=== PATIENT | male | born 1950 | race Caucasian/White ===

== ENCOUNTER 2016-12-16 11:21 | Emergency (ER) | payer BC ==
[2016-12-16 11:36] VITALS: BP 146/62
[2016-12-16] MEDS ORDERED: Ketorolac INJ* 30 MG/ML 1 ML VIAL IM ONE (11:48)
--- NOTE | 2016-12-16 11:48 | UC ---
Back Pain HPI - HPI Summary HPI Summary: 66 yo male with the onset on LBP 4 days ago Gradually got worse and worse right posterior leg pain to below knee no bowel or bladder dysfunction has had sciatica before but never this back - History of Current Complaint Chief Complaint: UCBackPain Stated Complaint: BACK PAIN Time Seen by Provider: 12/16/16 11:30 Hx Obtained From: Patient Onset/Duration: Sudden Onset, Lasting Days - 4 Timing: Constant Severity Initially: Mild Severity Currently: Severe Pain Intensity: 8 Pain Scale Used: 0-10 Numeric Back Pain: Is Diffuse - lower back, Radiates To - posterior right leg to just below knee Character: Aching, Throbbing Aggravating Factor(s): Movement, Bending, Cough Alleviating Factor(s): Rest Associated Signs And Symptoms: Positive: Negative - Allergies/Home Medications Allergies/Adverse Reactions: Allergies Allergy/AdvReac Type Severity Reaction Status Date / Time No Known Allergies Allergy Verified 12/16/16 11:34 Home Medications: Home Medications Atorvastatin* [Lipitor 20 MG*] 20 mg PO DAILY 12/16/16 [History Confirmed ] Enalapril TAB* [Vasotec TAB*] 10 mg PO DAILY 12/16/16 [History Confirmed ] PMH/Surg Hx/FS Hx/Imm Hx Previously Healthy: Yes Cardiovascular History: Hypertension - Surgical History Surgical History: None - Family History Known Family History: Positive: Cardiac Disease, Hypertension, Diabetes - Social History Alcohol Use: Occasionally Substance Use Type: None Smoking Status (MU): Never Smoked Tobacco Review of Systems Constitutional: Negative Skin: Negative Eyes: Negative ENT: Negative Respiratory: Negative Cardiovascular: Negative Gastrointestinal: Negative Genitourinary: Negative Motor: Negative Neurovascular: Negative Musculoskeletal: Arthralgia, Myalgia Neurological: Negative Psychological: Negative Is Patient Immunocompromised?: No All Other Systems Reviewed And Are Negative: Yes Physical Exam Triage Information Reviewed: Yes Appearance: Well-Appearing, No Pain Distress, Well-Nourished Vital Signs: Initial Vital Signs Temp 99.7 F 12/16/16 11:32 Pulse 99 12/16/16 11:32 Resp 20 12/16/16 11:32 BP 146/62 12/16/16 11:32 Pulse Ox 99 12/16/16 11:32 Vital Signs Reviewed: Yes Eyes: Positive: Conjunctiva Clear ENT: Positive: Hearing grossly normal. Negative: Nasal congestion, Nasal drainage, Tonsillar exudate, Trismus, Muffled/hoarse voice Neck: Positive: Supple, Nontender, No Lymphadenopathy Respiratory: Positive: Lungs clear, Normal breath sounds, No respiratory distress, No accessory muscle use Cardiovascular: Positive: RRR, No Murmur Abdomen Description: Positive: Nontender, No Organomegaly, Soft. Negative: Bruit, CVA Tenderness (R), CVA Tenderness (L) Musculoskeletal: Positive: No Edema Neurological: Positive: Alert Psychological Exam: Normal Skin Exam: Normal Diagnostics - Radiology No standard instances Xray Interpretation: No Acute Changes Radiology Interpretation Completed By: ED Physician Back Pain Course/Dx - Differential Dx/Diagnosis Provider Diagnoses: acute right sciatica Discharge - Discharge Plan Condition: Stable Disposition: HOME Prescriptions: Cyclobenzaprine TAB* [Flexeril TAB*] 5 mg PO TID PRN #15 tab PRN Reason: Spasms HYDROcodone/ACETAMIN 5-325 MG* [[place] 5-325 TAB*] 1 tab PO Q4H PRN #15 tab MDD 4 PRN Reason: Pain Naproxen Sodium [Naproxen Sodium 500 MG TAB] 500 mg PO BID PRN #30 tab PRN Reason: Pain Patient Education Materials: Sciatica (ED) Referrals: Nolberto Pabon MD [Primary Care Provider] - 5 Days Images Front/Back of Body, Lg ([place]): 1 - pain here 2 - radiates here, + SLR to 45 %
--- NOTE | 2016-12-16 13:21 | RAD ---
INDICATION: Low back pain, right sciatica. COMPARISON: There are no prior studies available for comparison. TECHNIQUE: 5 views of the lumbar spine were obtained including lateral, oblique, AP and a coned-down lateral view of the lumbar sacral junction. FINDINGS: There is mild retrolisthesis of L3 relative to L4 of approximately 4 mm. The vertebra are otherwise in normal alignment. No fracture is seen. There is mild diffuse degenerative disc disease. IMPRESSION: 1. 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 2. MILD DIFFUSE DEGENERATIVE DISC DISEASE.
== END 2016-12-16 13:34 | disposition home or self-care (01) ==
LOC: UCEAST 11:21
DX: M54.31 Sciatica, right side (principal); I10 Essential (primary) hypertension
CPT/HCPCS: 72110; 96372; 99212; G0463; J1885

== ENCOUNTER 2017-10-03 08:27 | Inpatient (IN) | payer MEDICARE ==
--- NOTE | 2017-09-20 12:25 | HP ---
HISTORY AND PHYSICAL: PROVIDER: Dr. Nichole Lawler * (DICTATED BY MANISH ORO) DATE OF PROCEDURE: 10/03/17 HISTORY OF PRESENT ILLNESS: Mr. Obregon is a 67-year-old gentleman with over a year of increasing severe right knee pain. Pain is 7/10. He is having difficulty ambulating. He has failed antiinflammatories, activity modification , ice, and a home exercise program without relief. He would like to undergo a right total knee arthroplasty on 10/03/17. PAST MEDICAL HISTORY: 1. Hypercholesterolemia. 2. Hypertension. 3. Osteoarthritis. 4. Morbid obesity. 5. Hepatitis C. PAST SURGICAL HISTORY: 1. Cholecystectomy. 2. Knee arthroscopy, right knee. MEDICATIONS: 1. Atorvastatin calcium 20 mg. 2. Enalapril 10 mg. 3. Low dose aspirin 81 mg. ALLERGIES: NOVOCAIN causes tremors. FAMILY HISTORY: Maternal; diabetes, hypertension, cancer. Paternal; heart disease. SOCIAL HISTORY: The patient lives with his , retired from [employer]. Denies any tobacco or recreational drug use. Minimal alcohol use. Normally ambulates independently. Right-hand dominant. REVIEW OF SYSTEMS: General: The patient denies any fevers, chills, or night sweats. No known anesthesia problems. HEENT: Denies any headaches, lightheadedness, or syncopal episodes. Cardiothoracic: Denies any chest pain, heart palpitations or edema. Pulmonary: Denies any shortness of breath with exertion, chronic cough or COPD. GI: Denies any nausea, vomiting, diarrhea, or constipation. : Denies any nocturia, urinary frequency or urgency. MSK: Denies any chronic or intermittent back pain or fracture. Neuro: Denies any paresthesias or numbness. Integument: Denies any abrasions, lesions, rashes, lumps or open sores. PHYSICAL EXAMINATION GENERAL: The patient is alert and oriented x3. Appropriate mood and affect. Appropriately dressed and hygiene. No acute distress. HEENT: Normocephalic, atraumatic. Hearing and vision are grossly intact. PULMONARY: Lungs are clear to auscultation bilaterally with no wheezes, rales or rhonchi. CARDIO: Regular rate and rhythm. Normal S1 and S2. No appreciable S3 or S4. No murmurs, rubs, or gallops. MSK: Inspection of the right lower extremity reveals no erythema or ecchymosis. There is a moderate joint effusion present. Range of motion is 10 degrees to 120 degrees of flexion with knee pain and patellofemoral crepitus. He has positive medial and lateral joint line tenderness to palpation. Negative varus and valgus stress testing, negative anterior and posterior drawer testing. Neurovascularly intact distally with 2+ dorsalis pedis pulse. SKIN: Warm, dry, and intact. IMPRESSION: Severe end-stage right knee osteoarthritis. PLAN/RECOMMENDATIONS: To the OR for a right total knee arthroplasty to be performed on 10/03/17. The risks and benefits of surgery were reviewed with the patient by Dr. Lawler. Informed consent was obtained. The patient will return postoperatively 10 to 14 days postop for suture removal and followup. MANISH ORO [id number]/[facility] #: [id number] FISH
[~2017-10-03 08:27] MED LIST: Acetaminophen TAB* 325 MG PO ONE; Buffered Lidocaine 0.9% SYRIN* 5 ML/SYR SYRINGE INTRADERM ONE; Gabapentin CAP(*) 300 MG PO ONE; celeCOXIB CAP* 200 MG PO ONE
[2017-10-03] MEDS ORDERED: Gabapentin CAP(*) 300 MG ONE (08:40)
[2017-10-03] MEDS ORDERED: celeCOXIB CAP* 100 MG ONE (08:40)
[2017-10-03] MEDS ORDERED: ceFAZolin 1 GM in Dextrose (*) 1 GM/50 ML BAG IVPB ONE (08:41)
[2017-10-03] MEDS ORDERED: ceFAZolin 2 GM PREMIX (*) 2 GM/50 ML BAG IVPB ONE (08:41)
[2017-10-03] MEDS ORDERED: Acetaminophen TAB* 325 MG ONE (08:41)
[2017-10-03] MEDS ORDERED: Tranexamic Acid 1,000 MG/10 ML 1,000 MG in NS 0.9% 100 ML* 100 ML IV ONE (09:00)
[2017-10-03] MEDS ORDERED: Gabapentin CAP(*) 100 MG ONE ×2 (09:29→09:47)
[2017-10-03] MEDS ORDERED: fentaNYL* 50 MCG/ML 2 ML VIAL (100 MCG VIAL) ONE (09:49)
[2017-10-03] MEDS ORDERED: Midazolam* 1 MG/ML 5 ML VIAL (5 MG) ONE (09:49)
[2017-10-03] MEDS ORDERED: Midazolam* 1 MG/ML 2 ML VIAL (2 MG) ONE ×2 (10:43→13:13)
[2017-10-03] MEDS ORDERED: Propofol* 10 MG/ML 20 ML BTL IV PUSH ONE ×3 (10:57→12:45)
[2017-10-03] MEDS ORDERED: Dexamethasone IV* 4 MG/ML 1 ML (4 MG) ONE (10:57)
[2017-10-03] MEDS ORDERED: Famotidine IV* 10 MG/ML 2 ML (20 mg) ONE (10:57)
[2017-10-03] MEDS ORDERED: Scopolamine 1.5 mg* PATCH ONE (11:06)
[2017-10-03] MEDS ORDERED: diPHENhydraMINE IV* 50 MG/ML 1 ml VIAL (BENADRYL) IV PRN ×2 (12:09→13:36)
[2017-10-03] MEDS ORDERED: DiMENhydriNATE IV* 50 MG/ML VIAL IV PUSH PRN (12:09)
[2017-10-03] MEDS ORDERED: Naloxone* 0.4 MG/ML 1 ML VIAL IV PRN (12:09)
[2017-10-03] MEDS ORDERED: Ondansetron INJ* 2 MG/ML VIAL IV PRN ×2 (12:09→13:36)
[2017-10-03] MEDS ORDERED: HYDROcodone/ACETAMIN 5-325 MG* 1 TAB PO PRN ×2 (12:09)
[2017-10-03] MEDS ORDERED: HYDROmorphone INJ* 0.5 MG/0.5 ML SYRINGE IV PRN (12:09)
[2017-10-03] MEDS ORDERED: fentaNYL* 50 MCG/ML 2 ML VIAL (100 MCG VIAL) IV PRN (12:09)
[2017-10-03] MEDS ORDERED: Acetaminophen TAB* 325 MG PO PRN (12:09)
[2017-10-03] MEDS ORDERED: Levalbuterol 0.63MG/3ML NEB* UNIT OF USE INH PRN (12:09)
[2017-10-03] MEDS ORDERED: PROCHLORPERAZINE INJ 5 MG/ML 2 ML VIAL IV PRN (12:09)
[2017-10-03] MEDS ORDERED: Nalbuphine* 10 MG/ML 1 ML VIAL IV PRN (12:09)
[2017-10-03] MEDS ORDERED: Bupivacaine 0.25% SDV PF* 10 ML VIAL INJ ONE (12:28)
[2017-10-03] MEDS ORDERED: Magnesium Hydroxide LIQ* 30 ML UDC PO PRN (13:36)
[2017-10-03] MEDS ORDERED: Morphine INJ* 2 MG/ML 1 ML SYRINGE (TWO MG - NEW SYRINGE VERSION) IV PRN (13:36)
[2017-10-03] MEDS ORDERED: Polyethylene Glycol 3350* 17 GM PACKET PO PRN (13:36)
[2017-10-03] MEDS ORDERED: oxyCODONE/Acetamin 5/325 MG* TAB PO PRN (13:36)
[2017-10-03] MEDS ORDERED: Ondansetron TAB* 4 MG PO PRN (13:36)
[2017-10-03] MEDS ORDERED: Bisacodyl SUPP* 10 MG SUPP PR PRN (13:36)
--- NOTE | 2017-10-03 14:34 | RAD ---
HISTORY: s/p right TKA COMPARISONS: August 23, 2017 VIEWS: 2, Frontal and lateral views of the right knee FINDINGS: BONE DENSITY: Normal. BONES: The patient is status post right knee arthroplasty. There is no hardware failure or osteolysis. JOINTS: The patient is status post right knee arthroplasty. ALIGNMENT: There is no dislocation. SOFT TISSUES: Unremarkable. OTHER FINDINGS: None. IMPRESSION: STATUS POST RIGHT KNEE ARTHROPLASTY
[2017-10-03] MEDS: oxyCODONE/Acetamin 5/325 MG* TAB PO PRN (16:54)
[2017-10-03] MEDS ORDERED: Warfarin TAB(*) 6 MG PO ONE (17:00)
[2017-10-03] MEDS: ceFAZolin 1 GM in Dextrose (*) 1 GM/50 ML BAG IVPB SCH (18:47)
[2017-10-03] MEDS: Docusate CAP* 100 MG PO SCH (20:39)
[2017-10-03] MEDS: Magnesium Hydroxide LIQ* 30 ML UDC PO SCH (20:39)
--- NOTE | 2017-10-03 21:13 | CONS ---
CONSULTATION REPORT: DATE OF CONSULT: 10/03/17 TIME OF CONSULTATION: 2:30 p.m. REQUESTING PHYSICIAN: Nichole Lawler MD PRIMARY CARE PHYSICIAN: Wilfred Banks M.D. CHIEF COMPLAINT: Elective admission for right knee TKA. HISTORY OF PRESENT ILLNESS: This is a 67-year-old man with history of osteoarthritis that has been refractory to medical management who was admitted today for an elective right TKA with Dr. Lawler. He underwent spinal anesthesia. He received Versed, fentanyl and propofol intraoperatively and is seen in the PACU. A medical consult is requested for hypertension management. Mr. Obregon is feeling well at this time. His is at the bedside. He has no complaints. PAST MEDICAL HISTORY: 1. Osteoarthritis. 2. Hypertension. 3. Obesity. 4. Hepatitis A. Please note that prior records report a history of HCV; however, he does not have a reported history of HCV, only hepatitis A. PAST SURGICAL HISTORY: 1. Meniscus repair. 2. Cholecystectomy. HOME MEDICATIONS: 1. Enalapril 10 mg daily. 2. Atorvastatin 20 mg daily. SOCIAL HISTORY: He lives at home with his , Devika. He is retired. He is a never smoker. He uses no illicit drugs and he drinks 3 alcoholic beverages per week. REVIEW OF SYSTEMS: Negative for pain, nausea, chest pain, shortness of breath, headache, fever, or chills. PHYSICAL EXAM: Vital Signs: Temperature 96.8, heart rate 60, respiratory rate 18, pulse ox 98% on 2 liters, blood pressure 127/85. General: Drowsy, obese man, in no distress. He alerts easily to voice and follows all commands and answers my questions appropriately. HEENT: Pupils are equal, round and reactive to light. No nystagmus. Oral mucosa is moist. Neck: No JVP. No cervical adenopathy. Chest: Regular rate and rhythm. No murmurs. PMI nondisplaced. Lungs: Clear bilaterally. Abdomen: Obese, soft, nontender, nondistended. No guarding or rebound. Extremities: Right knee is immobilized. Distal pulses are 2+. Skin: Warm. No lower extremity edema. No rashes. No ulcers. DIAGNOSTIC STUDIES/LAB DATA: EKG, normal sinus rhythm. Normal axis. Normal intervals. No chamber hypertrophy. No ST or T-wave changes. ASSESSMENT AND PLAN: This is a 67-year-old man with history of hypertension, hyperlipidemia who presented to the hospital today for an elective right total knee arthroplasty. Medical consult is requested for hypertension management. 1. Postop day #0 right total knee arthroplasty, his pain is controlled at this time. His knee is immobilized. Mobilization per orthopedic surgery. 2. Hypertension. His blood pressure currently at goal. I will continue his home dose of enalapril, which I see has already been ordered. I will monitor his blood pressure during this admission. 3. Hyperlipidemia. I agree with continuing his home dose of Lipitor. 4. Deep vein thrombosis prophylaxis, Lovenox and warfarin per orthopedic surgery. [id number]/[facility] #: [id number] [facility]ITAL[facility]
[2017-10-03] MEDS: oxyCODONE TAB* 5 MG TAB PO PRN (22:27)
[2017-10-04] MEDS: ceFAZolin 1 GM in Dextrose (*) 1 GM/50 ML BAG IVPB SCH ×2 (03:12→10:50)
[2017-10-04] MEDS: oxyCODONE/Acetamin 5/325 MG* TAB PO PRN (03:12)
[2017-10-04 05:38] LABS: Hematocrit 36 % (42-52); Hemoglobin 12.4 g/dl (14.0-18.0); Mean Platelet Volume 7.6 um3 (7.4-10.4); Platelet Count 237 10^3/ul (150-450)
[2017-10-04 05:44] LABS: INR 1.08 (0.77-1.02)
[2017-10-04] MEDS: oxyCODONE TAB* 5 MG TAB PO PRN (05:44)
[2017-10-04 06:09] LABS: EGFR Non-African American 86.9 (>60)
[2017-10-04] MEDS: Enalapril TAB* 5 MG PO SCH (08:31)
[2017-10-04] MEDS: Atorvastatin* 20 MG TAB PO SCH (08:36)
[2017-10-04] MEDS: Docusate CAP* 100 MG PO SCH ×2 (08:36→19:53)
[2017-10-04] MEDS: Magnesium Hydroxide LIQ* 30 ML UDC PO SCH ×2 (08:36→19:53)
--- NOTE | 2017-10-04 09:03 | PN ---
Subjective Date of Service: 10/04/17 Interval History: Mr. Obregon tried to get out of bed alone several times last night. He continues to be drowsy this morning. He is nauseous. He ate dinner last night of meatloaf but could not stomach breakfast. Pain is controlled. His is at the bedside and says this is similar to how he has reacted in mine past to anesthesia. Social History: Unchanged from Admission Past Medical History: Unchanged from Admission Objective Active Medications: Atorvastatin Calcium (Lipitor*) 20 mg PO QAM [facility] Last Admin: 10/04/17 08:36 Dose: Not Given Bisacodyl (Dulcolax Supp*) 10 mg MD DAILY PRN PRN Reason: constipation Cyclobenzaprine HCl (Flexeril Tab*) 10 mg PO TID PRN PRN Reason: SPASMS Diphenhydramine HCl (Benadryl Iv*) 12.5 mg IV Q6H PRN PRN Reason: PRURITIS Docusate Sodium (Colace Cap*) 100 mg PO BID [facility] Last Admin: 10/04/17 08:36 Dose: Not Given Enalapril Maleate (Vasotec Tab*) 10 mg PO QAM [facility] Last Admin: 10/04/17 08:31 Dose: 10 mg Enoxaparin Sodium (Lovenox(*)) 40 mg SUBCUT Q24H [facility] Cefazolin Sodium/Dextrose (Kefzol 1 Gm In Dextrose Duplex (*)) 1 gm in 50 mls @ 200 mls/hr IVPB Q8H [facility] Stop: 10/04/17 11:14 Last Admin: 10/04/17 03:12 Dose: 200 mls/hr Lactated Ringer's (Lactated Ringers 1000 Ml Bag*) 1,000 mls @ 100 mls/hr IV PER RATE [facility] Last Admin: 10/04/17 01:59 Dose: 100 mls/hr Lactulose (Lactulose*) 30 ml PO Q6H PRN PRN Reason: constipation Levalbuterol HCl (Xopenex 0.63mg/3ml Neb*) 0.63 mg INH ONCE PRN PRN Reason: SOB/WHEEZING Magnesium Hydroxide (Milk Of Magnesia Liq*) 30 ml PO BID [facility] Last Admin: 10/04/17 08:36 Dose: Not Given Magnesium Hydroxide (Milk Of Magnesia Liq*) 30 ml PO Q6H PRN PRN Reason: constipation Morphine Sulfate (Morphine Inj ((Syringe))*) 2 mg IV Q2H PRN PRN Reason: PAIN Last Admin: 10/03/17 19:07 Dose: 2 mg Ondansetron HCl (Zofran Inj*) 4 mg IV Q6H PRN PRN Reason: nausea Last Admin: 10/04/17 05:40 Dose: 4 mg Ondansetron HCl (Zofran Tab*) 4 mg PO Q6H PRN PRN Reason: NAUSEA Oxycodone HCl (Roxycodone Tab*) 10 mg PO Q4H PRN PRN Reason: SEVERE PAIN Last Admin: 10/04/17 05:44 Dose: 10 mg Oxycodone/Acetaminophen (Percocet 5/325 Tab*) 1 tab PO Q4H PRN PRN Reason: PAIN Oxycodone/Acetaminophen (Percocet 5/325 Tab*) 2 tab PO Q4H PRN PRN Reason: PAIN Last Admin: 10/04/17 03:12 Dose: 2 tab Pharmacy Profile Note (Scopolamine Patch Remove*) 1 note PATCH OFF Q72H ONE Stop: 10/06/17 12:12 Pharmacy Profile Note (Coumadin Daily Reminder*) 1 note FOLLOW UP [address] Last Admin: 10/03/17 17:15 Dose: 1 note Polyethylene Glycol/Electrolytes (Miralax*) 17 gm PO DAILY PRN PRN Reason: Constipation Vital Signs - 8 hr 10/04/17 10/04/17 10/04/17 03:12 03:22 04:09 Temperature 97.3 F Pulse Rate 81 Respiratory 18 19 20 Rate Blood Pressure 141/77 (mmHg) O2 Sat by Pulse 99 Oximetry 10/04/17 10/04/17 10/04/17 05:44 06:01 07:38 Temperature Pulse Rate 66 Respiratory 18 18 14 Rate Blood Pressure 143/71 (mmHg) O2 Sat by Pulse 100 Oximetry 10/04/17 07:39 Temperature 97.3 F Pulse Rate Respiratory Rate Blood Pressure (mmHg) O2 Sat by Pulse 97 Oximetry Oxygen Devices in Use Now: Nasal Cannula Appearance: drowsy. falls asleep frequently during my exam and interview. Eyes: No Scleral Icterus Ears/Nose/Mouth/Throat: NL Teeth, Lips, Gums Neck: NL Appearance and Movements; NL JVP Respiratory: Symmetrical Chest Expansion and Respiratory Effort, Clear to Auscultation Cardiovascular: NL Sounds; No Murmurs; No JVD, RRR Abdominal: NL Sounds; No Tenderness; No Distention Lymphatic: No Cervical Adenopathy Extremities: No Edema Skin: No Rash or Ulcers, - - cryo-unit in place, distal pulses 2+ Neurological: Alert and Oriented x 3 Result Diagrams: 10/04/17 05:25 10/04/17 05:25 Assess/Plan/Problems-Billing Assessment: - Patient Problems (1) HTN (hypertension) Current Visit: Yes Status: Acute Code(s): I10 - ESSENTIAL (PRIMARY) HYPERTENSION SNOMED Code(s): 14905459 Comment: There is some debate over optimal bp goals in diabetics, but intermediate the ADA recommends <140/90. Some trials have suggested lower bp targets in diabetic patients for intermediate goals, but while inpatient and recovering, would not increase antihypertensives at this time. (2) Status post total right knee replacement Current Visit: Yes Status: Acute Code(s): Z96.651 - PRESENCE OF RIGHT ARTIFICIAL KNEE JOINT SNOMED Code(s): 5626312883531 Comment: POD #1. Alvares is out. Pain is controlled, bowel regimen, PT and mobilization. (3) Postoperative delirium Current Visit: Yes Status: Acute Code(s): F05 - DELIRIUM DUE TO KNOWN PHYSIOLOGICAL CONDITION SNOMED Code(s): 2721531 Comment: redirectable, improving
[2017-10-04] MEDS: Acetaminophen TAB* 325 MG PO PRN ×3 (10:55→19:55)
[2017-10-04] MEDS: Enoxaparin(*) 40 MG/0.4 ML SYR SUBCUT SCH (12:16)
--- NOTE | 2017-10-04 12:39 | PN ---
Progress Note - Progress Note Date of Service: 10/04/17 SOAP: Subjective: Pt drowsy and confused this AM. Pt seen sitting up in chair. His is with him. He has minimal complaint of pain. Denies CP, SOB, N/V, F/C Vital Signs: Temp Pulse Resp BP Pulse Ox 97.3 F 72 15 130/69 100 10/04/17 07:39 10/04/17 11:48 10/04/17 11:48 10/04/17 11:48 10/04/17 11:48 Laboratory Last Values Hgb 12.4 g/dl (14.0-18.0) L 10/04/17 05:25 Hct 36 % (42-52) L 10/04/17 05:25 Plt Count 237 10^3/ul (150-450) 10/04/17 05:25 MPV 7.6 um3 (7.4-10.4) 10/04/17 05:25 INR (Anticoag Therapy) 1.08 (0.77-1.02) H 10/04/17 05:25 Sodium 137 mmol/L (135-145) 10/04/17 05:25 Potassium 4.3 mmol/L (3.5-5.0) 10/04/17 05:25 Chloride 106 mmol/L (101-111) 10/04/17 05:25 Carbon Dioxide 25 mmol/L (22-32) 10/04/17 05:25 Anion Gap 6 mmol/L (2-11) 10/04/17 05:25 BUN 19 mg/dL (6-24) 10/04/17 05:25 Creatinine 0.88 mg/dL (0.67-1.17) 10/04/17 05:25 Est GFR ( Amer) 105.2 (>60) 10/04/17 05:25 Est GFR (Non-Af Amer) 86.9 (>60) 10/04/17 05:25 BUN/Creatinine Ratio 21.6 (8-20) H 10/04/17 05:25 Glucose 151 mg/dL (70-100) H 10/04/17 05:25 Calcium 8.7 mg/dL (8.6-10.3) 10/04/17 05:25 Objective: Dressing C/D/I. Calves soft, nontender. DP pulses 2+. Sensation intact to light touch distally. Assessment: 67 yo male s/p right TKA POD #1 Plan: OOB PT/OT Pain control DVT prophylaxis - Lovenox, Coumadin 8mg today Appreciate hospitalist input Possible D/C tomorrow
[2017-10-04] MEDS: Cyclobenzaprine TAB* 10 MG PO PRN ×2 (14:42→22:20)
[2017-10-04] MEDS ORDERED: Warfarin TAB(*) 4 MG PO ONE (17:00)
--- NOTE | 2017-10-04 21:37 | OP ---
OPERATIVE REPORT: DATE OF OPERATION: 10/03/17 DATE OF : 54 ATTENDING SURGEON: Nichole Lawler MD PRACTICE SUPPORT SPECIALIST: MANISH Parker Mr. Baird did help throughout the procedure with preparation of the leg, wound retraction, manipulat ion of the knee and wound closure. ANESTHESIOLOGIST: Dr. Marroquin. ANESTHESIA: Spinal. PRE-OP DIAGNOSIS: Severe end-stage arthritis of the right knee joint. POST-OP DIAGNOSIS: Severe end-stage arthritis of the right knee joint. OPERATIVE PROCEDURE: Right total knee arthroplasty. TOURNIQUET TIME: Fifty two minutes. COMPLICATIONS: None. ESTIMATED BLOOD LOSS: 300 cc. SPECIMEN: Bone and cartilage from the right knee joint sent to pathology. HARDWARE USED: This is cemented [employer] total knee arthroplasty hardware. Two packages of S implex bone cement were used. For the femur, a right size 7 Legion Oxinium femoral component, animal control specialist ior stabilized. For the tibia, a right Trinidad II size 7 tibial baseplate. For the insert, an 11-mm posterior stabilized articular insert size 7/8. For the patella, 3-peg all poly patella size 35. BRIEF HISTORY/INDICATIONS: Mr. Obregon is a 67-year-old gentleman with years of increasingly severe ri ght knee pain. He failed conservative treatment with antiinflammatories, pain medication, intraartic ular injections, and physical therapy. Radiographs showed duzj-yw-rbof arthritis. Due to continued pain and decreased quality of life, the patient elected to undergo right total knee arthroplasty. In formed consent was obtained from the patient. He understood the risks of the surgery included, but w ere not limited to, bleeding, infection, damage to nearby structures, continued pain, need for furthe r surgery, intraoperative fracture, nerve palsy, hardware failure or loosening, knee stiffness, loss of motion, stroke, heart attack, blood clot, and . He wished to proceed. INTRAOPERATIVE FINDINGS: Intraoperatively, the patient was noted to have severe end-stage arthritis. This is tricompartmental total thickness loss of cartilage. Patellofemoral and medial compartments had deformity of the subchondral bone because of the advanced wear. DESCRIPTION OF PROCEDURE: Mr. Obregon was identified in the preanesthesia unit. His right lower extre mity was marked as the correct operative side. Informed consent was signed and placed in the chart. The patient was taken to the operating room and placed under spinal anesthesia. A Alvares catheter wa s placed. Tourniquet was placed on the right thigh. Right lower extremity was prepped and draped in the usual sterile fashion. Preop time-out was made to correctly identify the patient, side, and sit e. Appropriate perioperative antibiotics were given within 1 hour of incision. Tourniquet was inflated and total tourniquet time for this procedure was 52 minutes. A midline incis ion was made and carried down to extensive mechanism. A new 10 blade was used to make a standard med ial parapatellar arthrotomy. The patella was subluxed laterally. Electrocautery was used to subperio steally elevate the soft tissue off the superomedial tibia to the mid sagittal plane. The knee was f lexed up. Anterior horn of the lateral meniscus and ACL were sharply released. A drill was used to enter the distal femur. Intramedullary distal femoral cutting guide was pinned on the distal femur. Oscillating saw was used to make the correct distal femoral cut. External rotation guide was pinned on the distal femur. Distal femur was sized to a size 7. Size 7 multi-cutting jig was pinned on the distal femur. The oscillating saw was used to make the appropria te 4 chamfer cuts. The PCL was completely released. The tibia was subluxed anteriorly. Extramedullary tibial cutting gu ashley was pinned on the proximal tibia. Oscillating saw was used to make the proximal tibial cut perpe ndicular to the mechanical axis of the tibia. The bone was carefully removed. The knee was brought o ut into full extension. A spacer block had good fit with the knee in full extension. There was good medial and lateral ligamentous balancing. Flexion and extension gaps were well balanced. The knee was flexed up. Lamina sales representative health insurance was placed both medially and laterally. Any remaining meniscus was c arefully removed using electrocautery. A curved osteotome was used to remove any posterior osteophyte s. Tibial tray and drop alejandrina were placed and once again confirmed a satisfactory tibial cut. A size 7 right femoral trial was impacted onto the distal femur and had excellent fit and stability. The box for the posterior stabilized implant was prepared using a reamer and box cut osteotome. A s ize 7 tibial tray trial with an 11 mm insert trial was placed and the knee was taken through a range of motion. The knee had full extension to 130 degrees of flexion with satisfactory patellofemoral tr acking. The patella was everted. A 9 mm of patellar bone and cartilage was carefully removed using a n oscillating saw. The patella was sized to a size 35. Three peg holes were drilled through the si e 35 guide. A 35 trial patella was placed and the knee was taken through a range of motion. There w as satisfactory patellofemoral tracking. All trials were carefully removed. The tibia was subluxed anteriorly and sized to a size 7. Proximal tibia was prepared using a size 7 keel punch. All bony cut surfaces were copiously irrigated with sterile saline and dried. Final imp lants were cemented into place starting with the tibia, followed by the femur, and lastly the patella . An 11-mm insert trial was placed and the knee was brought out into full extension. The tourniquet was turned down at 52 minutes. The knee was copiously irrigated with sterile saline. Electrocauter y was used to obtain meticulous hemostasis. Once the cement had fully cured, the insert trial was re moved. Any excess cement was carefully removed from around the implant and capsule. Final insert ch osen was a 11 mm, posterior stabilizer articular insert size 7/8. This was locked into position on t he tibial tray. Stability of the insert was checked and rechecked and noted to be stable. The knee was once again copiously irrigated with sterile saline. Extensive mechanism was closed using interrup luis #1 Vicryl. The rest of the incision was closed in a layered fashion using 0 and 2-0 Vicryl. Ski n was closed using running 3-0 nylon suture. Sterile Xeroform, 4x4s, and Webril were used to cover t he incision. Artur wrap and cold pack were placed over this. The patient's anesthesia was reversed wit hout difficulty. He was taken to the PACU in stable condition. Intended weightbearing will be weigh tbearing as tolerated. Intended DVT prophylaxis will be Coumadin with a Lovenox bridge. [id number]/[facility] #: [id number]
[2017-10-05] MEDS: Acetaminophen TAB* 325 MG PO PRN ×6 (00:05→23:55)
[2017-10-05 05:51] LABS: Hematocrit 34 % (42-52); Hemoglobin 11.7 g/dl (14.0-18.0); Mean Platelet Volume 7.8 um3 (7.4-10.4); Platelet Count 225 10^3/ul (150-450)
[2017-10-05 05:58] LABS: INR 1.46 (0.77-1.02)
[2017-10-05] MEDS: Docusate CAP* 100 MG PO SCH ×2 (08:46→20:22)
[2017-10-05] MEDS: Atorvastatin* 20 MG TAB PO SCH (08:47)
[2017-10-05] MEDS: Enalapril TAB* 5 MG PO SCH (08:47)
[2017-10-05] MEDS: Magnesium Hydroxide LIQ* 30 ML UDC PO SCH ×2 (08:47→20:23)
[2017-10-05] MEDS: Cyclobenzaprine TAB* 10 MG PO PRN ×2 (10:19→19:25)
--- NOTE | 2017-10-05 10:51 | PN ---
Progress Note - Progress Note Date of Service: 10/05/17 SOAP: Subjective: Pt much more awake this AM. States feel a bit shaky and unstable when working with PT. Pain controlled with Tylenol. Denies CP, SOB, N/V, F/C. Vital Signs: Temp Pulse Resp BP Pulse Ox 98.0 F 78 16 150/90 94 10/05/17 08:14 10/05/17 08:14 10/05/17 10:19 10/05/17 08:14 10/05/17 08:14 Laboratory Last Values Hgb 11.7 g/dl (14.0-18.0) L 10/05/17 05:18 Hct 34 % (42-52) L 10/05/17 05:18 Plt Count 225 10^3/ul (150-450) 10/05/17 05:18 MPV 7.8 um3 (7.4-10.4) 10/05/17 05:18 INR (Anticoag Therapy) 1.46 (0.77-1.02) H 10/05/17 05:18 Sodium 137 mmol/L (135-145) 10/04/17 05:25 Potassium 4.3 mmol/L (3.5-5.0) 10/04/17 05:25 Chloride 106 mmol/L (101-111) 10/04/17 05:25 Carbon Dioxide 25 mmol/L (22-32) 10/04/17 05:25 Anion Gap 6 mmol/L (2-11) 10/04/17 05:25 BUN 19 mg/dL (6-24) 10/04/17 05:25 Creatinine 0.88 mg/dL (0.67-1.17) 10/04/17 05:25 Est GFR ( Amer) 105.2 (>60) 10/04/17 05:25 Est GFR (Non-Af Amer) 86.9 (>60) 10/04/17 05:25 BUN/Creatinine Ratio 21.6 (8-20) H 10/04/17 05:25 Glucose 151 mg/dL (70-100) H 10/04/17 05:25 Calcium 8.7 mg/dL (8.6-10.3) 10/04/17 05:25 Objective: Dressing changed by Dr. Lawler. Incision C/D/I. Calves soft, nontender. DP pulses 2+. Sensation intact to light touch distally. Assessment: 67 yo male s/p right TKA POD #2 Plan: OOB PT/OT WBAT Pain control DVT prophylaxis - Lovenox, Coumadin 4mg today Likely D/C to home tomorrow
[2017-10-05] MEDS: oxyCODONE TAB* 5 MG TAB PO PRN (11:49)
[2017-10-05] MEDS: Enoxaparin(*) 40 MG/0.4 ML SYR SUBCUT SCH (12:24)
--- NOTE | 2017-10-05 14:38 | PN ---
Subjective Date of Service: 10/05/17 Interval History: Patient seen and examined at bedside. Denies fever, chills, shortness of breath , chest discomfort, N/V/D. Pt states that he has right knee pain, but this is mostly controlled. Pt's feels like he is improving with his mentation and almost back to his baseline. Social History: Unchanged from Admission Past Medical History: Unchanged from Admission Objective Active Medications: Acetaminophen (Tylenol Tab*) 650 mg PO Q4H PRN Reason: FEVER/PAIN Atorvastatin Calcium (Lipitor*) 20 mg PO QAM [facility] Bisacodyl (Dulcolax Supp*) 10 mg SC DAILY PRN Reason: constipation Cyclobenzaprine HCl (Flexeril Tab*) 10 mg PO TID PRN Reason: SPASMS Diphenhydramine HCl (Benadryl Iv*) 12.5 mg IV Q6H PRN Reason: PRURITIS Docusate Sodium (Colace Cap*) 100 mg PO BID [facility] Enalapril Maleate (Vasotec Tab*) 10 mg PO QAM [facility] Enoxaparin Sodium (Lovenox(*)) 40 mg SUBCUT Q24H [facility] Lactated Ringer's (Lactated Ringers 1000 Ml Bag*) 1,000 mls @ 100 mls/hr IV PER RATE [facility]ATES[facility] Lactulose (Lactulose*) 30 ml PO Q6H PRN Reason: constipation Levalbuterol HCl (Xopenex 0.63mg/3ml Neb*) 0.63 mg INH ONCE PRN Reason: SOB/ WHEEZING Magnesium Hydroxide (Milk Of Magnesia Liq*) 30 ml PO BID [facility] Magnesium Hydroxide (Milk Of Magnesia Liq*) 30 ml PO Q6H PRN Reason: constipation Morphine Sulfate (Morphine Inj ((Syringe))*) 2 mg IV Q2H PRN Reason: PAIN Ondansetron HCl (Zofran Inj*) 4 mg IV Q6H PRN Reason: nausea Ondansetron HCl (Zofran Tab*) 4 mg PO Q6H PRN Reason: NAUSEA Oxycodone HCl (Roxycodone Tab*) 10 mg PO Q4H PRN Reason: SEVERE PAIN Oxycodone/Acetaminophen (Percocet 5/325 Tab*) 1 tab PO Q4H PRN Reason: PAIN Oxycodone/Acetaminophen (Percocet 5/325 Tab*) 2 tab PO Q4H PRN Reason: PAIN Pharmacy Profile Note (Scopolamine Patch Remove*) 1 note PATCH OFF Q72H ONE Stop: 10/06/17 12:12 Pharmacy Profile Note (Coumadin Daily Reminder*) 1 note FOLLOW UP 1700 [facility] Polyethylene Glycol/Electrolytes (Miralax*) 17 gm PO DAILY PRN Reason: Constipation Warfarin Sodium (Coumadin Tab(*)) 4 mg PO ONCE@1700 ONE; Protocol Stop: 10/05/17 17:01 Vital Signs - 8 hr 10/05/17 10/05/17 10/05/17 06:54 07:40 08:14 Temperature 98.0 F Pulse Rate 85 78 Respiratory 16 18 Rate Blood Pressure 150/90 (mmHg) O2 Sat by Pulse 98 94 Oximetry 10/05/17 10/05/17 10:19 11:49 Temperature Pulse Rate Respiratory 16 16 Rate Blood Pressure (mmHg) O2 Sat by Pulse Oximetry Oxygen Devices in Use Now: None Appearance: NAD, sitting up in a chair Ears/Nose/Mouth/Throat: Mucous Membranes Moist Respiratory: Symmetrical Chest Expansion and Respiratory Effort, Clear to Auscultation Cardiovascular: NL Sounds; No Murmurs; No JVD, RRR Abdominal: NL Sounds; No Tenderness; No Distention Extremities: - - Mild right LE edema Skin: - - Dressing to right knee clean, dry and intact Neurological: Alert and Oriented x 3, NL Muscle Strength and Tone Lines/Tubes/Other Access: Clean, Dry and Intact Peripheral IV - site benign Nutrition: Taking PO's Result Diagrams: 10/05/17 05:18 10/04/17 05:25 Assess/Plan/Problems-Billing Assessment: Mr. Obregon is a 67 yo male with PMH significant for osteoarthritis, HTN, obesity , and hepatitis A who presented to the hospital for an elective right total knee arthoplasty. Hospitalists were asked to assist with medical co-management. - Patient Problems (1) Status post total right knee replacement Code(s): Z96.651 - PRESENCE OF RIGHT ARTIFICIAL KNEE JOINT SNOMED Code(s): 3236510305139 Comment: - POD #2, management per Ortho - HH stable - Continue PT/OT, Pain control, and bowel regimen (2) Postoperative delirium Code(s): F05 - DELIRIUM DUE TO KNOWN PHYSIOLOGICAL CONDITION SNOMED Code(s): 3183925 Comment: - Improving - Continue supportive measures (3) HTN (hypertension) Code(s): I10 - ESSENTIAL (PRIMARY) HYPERTENSION SNOMED Code(s): 67778332 Comment: - SBP 120-150's - Continue enalapril (may benefit from medication adjustments outpatient for goal BP <140/90) (4) Morbid obesity Code(s): E66.01 - MORBID (SEVERE) OBESITY DUE TO EXCESS CALORIES SNOMED Code(s ): 157230662 Comment: - BMI ~ 41 (5) DVT prophylaxis Code(s): JLB0069 - SNOMED Code(s): 626884642 Comment: - Lovenox bridge to Warfarin per Ortho (6) Full code status Code(s): Z78.9 - OTHER SPECIFIED HEALTH STATUS SNOMED Code(s): 427515531 Status and Disposition: Inpatient. Disposition per orthopedic surgery. Thank you for this consultation. We will continue to follow along.
[2017-10-05] MEDS: traMADol TAB* 50 MG PO PRN ×2 (16:27→23:56)
[2017-10-05] MEDS ORDERED: Warfarin TAB(*) 4 MG PO ONE (17:00)
[2017-10-06] MEDS: Acetaminophen TAB* 325 MG PO PRN ×2 (06:00→11:00)
[2017-10-06] MEDS: traMADol TAB* 50 MG PO PRN ×2 (06:00→11:58)
[2017-10-06 06:03] LABS: Hematocrit 34 % (42-52); Hemoglobin 11.6 g/dl (14.0-18.0); Platelet Count 206 10^3/ul (150-450)
[2017-10-06 06:19] LABS: INR 1.45 (0.77-1.02)
[2017-10-06] MEDS: Docusate CAP* 100 MG PO SCH (08:56)
[2017-10-06] MEDS: Magnesium Hydroxide LIQ* 30 ML UDC PO SCH (08:57)
[2017-10-06] MEDS: Atorvastatin* 20 MG TAB PO SCH (08:57)
[2017-10-06] MEDS: Enalapril TAB* 5 MG PO SCH (08:57)
[2017-10-06] MEDS: Enoxaparin(*) 40 MG/0.4 ML SYR SUBCUT SCH (11:59)
[2017-10-06] MEDS ORDERED: Scopolamine PATCH Remove* 1 NOTE MISC PATCH OFF ONE (12:11)
[2017-10-06 12:29] VITALS: BP 121/63
--- NOTE | 2017-10-06 13:17 | PN ---
Subjective Date of Service: 10/06/17 Interval History: Patient seen and examined at bedside. Pt states that he continues to improve each day. His feels he is almost back to his baseline mentation. Denies fever, chills, shortness of breath, chest discomfort, N/V/D. Pt states that pain is mostly controlled. Social History: Unchanged from Admission Past Medical History: Unchanged from Admission Objective Active Medications: Acetaminophen (Tylenol Tab*) 650 mg PO Q4H PRN Reason: FEVER/PAIN Atorvastatin Calcium (Lipitor*) 20 mg PO QAM [facility] Bisacodyl (Dulcolax Supp*) 10 mg RI DAILY PRN Reason: constipation Cyclobenzaprine HCl (Flexeril Tab*) 10 mg PO TID PRN Reason: SPASMS Diphenhydramine HCl (Benadryl Iv*) 12.5 mg IV Q6H PRN Reason: PRURITIS Docusate Sodium (Colace Cap*) 100 mg PO BID [facility] Enalapril Maleate (Vasotec Tab*) 10 mg PO QAM [facility] Enoxaparin Sodium (Lovenox(*)) 40 mg SUBCUT Q24H [facility] Lactated Ringer's (Lactated Ringers 1000 Ml Bag*) 1,000 mls @ 100 mls/hr IV PER RATE [facility]ATES[facility] Lactulose (Lactulose*) 30 ml PO Q6H PRN Reason: constipation Levalbuterol HCl (Xopenex 0.63mg/3ml Neb*) 0.63 mg INH ONCE PRN Reason: SOB/ WHEEZING Magnesium Hydroxide (Milk Of Magnesia Liq*) 30 ml PO BID [facility] Magnesium Hydroxide (Milk Of Magnesia Liq*) 30 ml PO Q6H PRN Reason: constipation Morphine Sulfate (Morphine Inj ((Syringe))*) 2 mg IV Q2H PRN Reason: PAIN Ondansetron HCl (Zofran Inj*) 4 mg IV Q6H PRN Reason: nausea Ondansetron HCl (Zofran Tab*) 4 mg PO Q6H PRN Reason: NAUSEA Pharmacy Profile Note (Coumadin Daily Reminder*) 1 note FOLLOW UP 1700 [facility]ATES[facility] Polyethylene Glycol/Electrolytes (Miralax*) 17 gm PO DAILY PRN Reason: Constipation Tramadol HCl (Ultram*) 50 mg PO Q6H PRN Reason: PAIN Vital Signs - 8 hr 08/07/1910/06/17 10/06/17 06:00 07:23 08:00 Temperature 97.4 F Pulse Rate 79 Respiratory 18 14 18 Rate Blood Pressure 124/84 (mmHg) O2 Sat by Pulse 95 95 Oximetry 10/06/17 10/06/17 10/06/17 08:32 11:27 11:58 Temperature 97.7 F Pulse Rate 72 Respiratory 18 14 16 Rate Blood Pressure 157/87 (mmHg) O2 Sat by Pulse 99 Oximetry 10/06/17 12:28 Temperature Pulse Rate 80 Respiratory Rate Blood Pressure 121/63 (mmHg) O2 Sat by Pulse Oximetry Oxygen Devices in Use Now: None Appearance: NAD, sitting up in a chair Ears/Nose/Mouth/Throat: Mucous Membranes Moist Respiratory: Symmetrical Chest Expansion and Respiratory Effort, Clear to Auscultation Cardiovascular: NL Sounds; No Murmurs; No JVD, RRR Abdominal: NL Sounds; No Tenderness; No Distention Extremities: - - Trace edema to right LE Skin: - - Dressing to right knee clean, dry and intact Neurological: Alert and Oriented x 3, NL Muscle Strength and Tone Lines/Tubes/Other Access: Clean, Dry and Intact Peripheral IV - site benign Nutrition: Taking PO's Result Diagrams: 10/06/17 05:52 10/04/17 05:25 Assess/Plan/Problems-Billing Assessment: Mr. Obregon is a 67 yo male with PMH significant for osteoarthritis, HTN, obesity , and hepatitis A who presented to the hospital for an elective right total knee arthoplasty. Hospitalists were asked to assist with medical co-management. - Patient Problems (1) Status post total right knee replacement Code(s): Z96.651 - PRESENCE OF RIGHT ARTIFICIAL KNEE JOINT SNOMED Code(s): 3725861482883 Comment: - POD #3, management per Ortho - HH stable - Continue PT/OT, Pain control, and bowel regimen (2) Postoperative delirium Code(s): F05 - DELIRIUM DUE TO KNOWN PHYSIOLOGICAL CONDITION SNOMED Code(s): 0037271 Comment: - Resolving - Continue supportive measures (3) HTN (hypertension) Code(s): I10 - ESSENTIAL (PRIMARY) HYPERTENSION SNOMED Code(s): 86827073 Comment: - SBP 120-150's - Continue enalapril (may benefit from medication adjustments outpatient for goal BP <140/90) (4) Morbid obesity Code(s): E66.01 - MORBID (SEVERE) OBESITY DUE TO EXCESS CALORIES SNOMED Code(s ): 251995787 Comment: - BMI ~ 41 (5) DVT prophylaxis Code(s): DYL6771 - SNOMED Code(s): 169353189 Comment: - Lovenox bridge to Warfarin per Ortho (6) Full code status Code(s): Z78.9 - OTHER SPECIFIED HEALTH STATUS SNOMED Code(s): 275465479 Status and Disposition: Inpatient. Disposition per orthopedic surgery. Thank you for this consultation. We will sign off at this time.
--- NOTE | 2017-10-06 16:18 | PN ---
Progress Note - Progress Note Date of Service: 10/06/17 SOAP: Subjective: Pt seen sitting comfortably in chair. States feeling much better today. Denies CP, SOB, F/C, N/V Vital Signs: Temp Pulse Resp BP Pulse Ox 97.7 F 80 16 121/63 99 10/06/17 11:27 10/06/17 12:28 10/06/17 11:58 10/06/17 12:28 10/06/17 11:27 Laboratory Last Values Hgb 11.6 g/dl (14.0-18.0) L 10/06/17 05:52 Hct 34 % (42-52) L 10/06/17 05:52 Plt Count 206 10^3/ul (150-450) 10/06/17 05:52 MPV 7.0 um3 (7.4-10.4) L 10/06/17 05:52 INR (Anticoag Therapy) 1.45 (0.77-1.02) H 10/06/17 05:52 Sodium 137 mmol/L (135-145) 10/04/17 05:25 Potassium 4.3 mmol/L (3.5-5.0) 10/04/17 05:25 Chloride 106 mmol/L (101-111) 10/04/17 05:25 Carbon Dioxide 25 mmol/L (22-32) 10/04/17 05:25 Anion Gap 6 mmol/L (2-11) 10/04/17 05:25 BUN 19 mg/dL (6-24) 10/04/17 05:25 Creatinine 0.88 mg/dL (0.67-1.17) 10/04/17 05:25 Est GFR ( Amer) 105.2 (>60) 10/04/17 05:25 Est GFR (Non-Af Amer) 86.9 (>60) 10/04/17 05:25 BUN/Creatinine Ratio 21.6 (8-20) H 10/04/17 05:25 Glucose 151 mg/dL (70-100) H 10/04/17 05:25 Calcium 8.7 mg/dL (8.6-10.3) 10/04/17 05:25 Objective: Dressing C/D/I. Calves soft, nontender. DP pulses 2+. Sensation intact to light touch distally. Assessment: 67 yo male s/p right TKA POD #3 Plan: OOB PT/OT Pain control DVT prophylaxis - Coumadin 8mg today D/C home today
--- NOTE | 2017-10-07 23:32 | DS ---
DISCHARGE SUMMARY: DATE OF ADMISSION: 10/03/17 DATE OF DISCHARGE: 10/06/17 ATTENDING PHYSICIAN: Nichole Lawler MD * (DICTATED BY MANISH HERNANDEZ) PRINCIPAL DIAGNOSIS: Right side end-stage knee osteoarthritis. SECONDARY DIAGNOSES: 1. Hypocholesterolemia. 2. Hypertension. 3. Osteoarthritis. 4. Morbid obesity. 5. Hepatitis C. PRINCIPAL PROCEDURE: Right total knee arthroplasty. REASON FOR HOSPITALIZATION: Mr. Obregon is a 67-year-old male who has a longstanding history of severe right knee pain due to end-stage right knee osteoarthritis. He has had difficulty ambulating. He has failed anti- inflammatories, activity modification, ice, and home exercise program without relief. He had elected to proceed with right-sided total knee arthroplasty, which was done on 10/03/17. HOSPITAL COURSE: The patient was admitted to the hospital on 10/03/17, for anticipated surgery. He underwent surgery without any complications. He was transferred to the recovery room and subsequently the surgical stay unit in a stable condition. He participated in physical therapy and occupational therapy throughout the hospital course and had done well. He did have some postanesthesia delirium on postoperative day #1 his pain medications were changed from Percocet to tramadol, this did improve. Daily hemoglobin and hematocrit were drawn. His hemoglobin was 11.6 and hematocrit was 34 on the day of discharge. Daily INRs were drawn. INR was 1.45 on the day of discharge. The patient had no other complications during the hospital course. He was discharged home on 10/06/17 in a stable condition. DISCHARGE INSTRUCTIONS: Weightbearing as tolerated. Okay to shower on postop day #3. No bathing, swimming, or submerging wound. Use gentle soap, pat dry, cover with gauze, Artur wrap, or tape. Call orthopedic office for increased drainage, redness, increased pain or fever. Go to ER with shortness of breath or chest pain. Regular diet. Increase fluids and fiber to prevent constipation. Continue to use stool softeners, call office if no bowel movement within 48 hours. Continue physical therapy and occupational therapy exercises as shown. Visiting home nurse to do wound checks. Visiting home nurse to draw blood work for INR on Mondays and . Coumadin dosing: Take 8 mg of Coumadin on the day of discharge, 10/06/17. Pain control with tramadol 50 mg 1 to 2 tabs by mouth every 4 to 6 hours as needed for pain. Antibiotics required prior to any dental work. Follow up with Dr. Lawler in 10 to 14 days. Call the office for an appointment. Please call the office with any questions or concerns at [phone]. MANISH HERNANDEZ [id number]/[facility] #: [id number]
== END 2017-10-06 13:45 | disposition home or self-care (01) | DRG 470 ==
LOC: AA 08:27 → SSU 15:24
PROVIDERS: ADMIT Orthopaedic Surgery Adult Reconstructive Orthopaedic Surgery; ATTEND Orthopaedic Surgery Adult Reconstructive Orthopaedic Surgery
PROC: 0SRC069 Replacement of Right Knee Joint with Oxidized Zirconium on Polyethylene Synthetic Substitute, Cemented, Open Approach (ICD-10-PCS; principal; 2017-10-03 11:00)
DX: M17.11 Unilateral primary osteoarthritis, right knee (principal); Z68.41 Body mass index [BMI] 40.0-44.9, adult; F05 Delirium due to known physiological condition; I10 Essential (primary) hypertension; E78.00 Pure hypercholesterolemia, unspecified; E66.01 Morbid (severe) obesity due to excess calories; M25.461 Effusion, right knee; H54.7 Unspecified visual loss; H91.90 Unspecified hearing loss, unspecified ear; R21 Rash and other nonspecific skin eruption; M25.761 Osteophyte, right knee; Z88.4 Allergy status to anesthetic agent; Z86.19 Personal history of other infectious and parasitic diseases; Z80.7 Family history of other malignant neoplasms of lymphoid, hematopoietic and related tissues; Z80.9 Family history of malignant neoplasm, unspecified; Z82.49 Family history of ischemic heart disease and other diseases of the circulatory system; Z83.3 Family history of diabetes mellitus; Z72.89 Other problems related to lifestyle; Z90.49 Acquired absence of other specified parts of digestive tract
CPT/HCPCS: 36415; 80048; 85014; 85018; 85049; 85610; A9270-GY; C1776; G8978-GP-CI; G8978-GP-CJ; G8978-GP-CL; G8979-GP-CI; G8987-GO-CK; G8988-GO-CI; J0690; J1100; J1650; J2250; J2270; J2405; J2704; J3010; J3490

== ENCOUNTER 2019-01-13 00:22 | Observation (INO) | payer MEDICARE ==
[2019-01-13] MEDS ORDERED: NS 0.9% 1000 ML** 1,000 ML IV.FLUID IV ONE (00:31)
--- NOTE | 2019-01-13 00:34 | ED ---
Complex/Multi-Sys Presentation - HPI Summary HPI Summary: Patient is a 68 y/o M presenting to the ED for a chief complaint of fatigue. Patient was previously seen by Dr. Lawler for a follow up on a right knee surgery performed one year ago. While at Dr. Lawler's office, patient was reported to have a low grade fever of about 100 F. Patient reports falling out of bed with difficulty lifting himself up after the fall. Per EMS, patient had urinary incontinence. Patient also complains of decreased appetite, nausea, and lightheadedness. Patient denies chest pain, shortness of breath, cough, diarrhea , myalgia, headache, or problems with urinary voiding. Patient is currently receiving treatment for an enlarged prostate. Patient is retired. - History Of Current Complaint Time Seen by Provider: 01/13/19 00:30 Hx Obtained From: Patient, EMS Onset/Duration: Sudden Onset, Lasting Minutes Timing: Constant Severity Currently: Moderate Severity Initially: Moderate Associated Signs And Symptoms: Positive: Nausea, Fever - 100 F, in vitals, 102.6 F. Negative: Headache, SOB, Cough, Chest Pain, Diarrhea - Allergies/Home Medications Allergies/Adverse Reactions: Allergies Allergy/AdvReac Type Severity Reaction Status Date / Time procaine [From Novocain] Allergy Severe Shakes Verified 01/13/19 00:33 bee venom protein (honey bee) Allergy Hives Verified 01/13/19 00:33 Home Medications: Home Medications Tamsulosin CAP* [Flomax CAP*] 0.4 mg PO DAILY 01/13/19 [History Confirmed ] PMH/Surg Hx/FS Hx/Imm Hx Previously Healthy: Yes Endocrine/Hematology History: Denies: Hx Diabetes, Hx Anemia Cardiovascular History: Reports: Hx Hypertension Denies: Other Cardiovascular Problems/Disorders Respiratory History: Denies: Hx Chronic Obstructive Pulmonary Disease (COPD), Other Respiratory Problems/Disorders GI History: Denies: Other GI Disorders History: Reports: Other Problems/Disorders - Enlarged prostate, slow stream Denies: Hx Dialysis Musculoskeletal History: Reports: Hx Arthritis - Thumbs and knees, Other Musculoskeletal History - History of sciatic pain Sensory History: Reports: Hx Contacts or Glasses - Glasses Denies: Hx Legally Blind, Hx Deafness, Hx Hearing Aid Opthamlomology History: Reports: Hx Contacts or Glasses - Glasses Denies: Hx Legally Blind EENT History: Denies: Hx Deafness Neurological History: Denies: Hx Dementia, Hx Seizures, Other Neuro Impairments/Disorders - Surgical History Surgical History: Yes Surgery Procedure, Year, and Place: Cholecystectomy 1996. Right knee torn meniscus 2010 Hx Anesthesia Reactions: Yes - Nausea and vomiting Infectious Disease History: Reports: Hx Hepatitis - hep A Denies: Hx Clostridium Difficile, Hx Human Immunodeficiency Virus (HIV), Hx of Known/Suspected MRSA, Hx Shingles, Hx Tuberculosis, Hx Known/Suspected VRE, Hx Known/Suspected VRSA, History Other Infectious Disease, Traveled Outside the [place] in Last 30 Days - Family History Known Family History: Positive: Cardiac Disease, Hypertension, Diabetes - Social History Occupation: Retired Lives: With Family Alcohol Use: Occasionally Alcohol Amount: 3 times per week Hx Substance Use: No Substance Use Type: Reports: None Hx Tobacco Use: No Smoking Status (MU): Never Smoked Tobacco Review of Systems Positive: Fever - 100 F, in vitals, 102.6 F, Fatigue, Other - Positive decreased appetite Negative: Chest Pain Negative: Shortness Of Breath, Cough Positive: Nausea. Negative: Diarrhea Positive: incontinence - Urinary per EMS. Negative: other - Negative problems with urinary voiding Negative: Myalgia Neurological: Other - Positive lightheadedness Negative: Headache All Other Systems Reviewed And Are Negative: Yes Physical Exam - Summary Physical Exam Summary: Appearance: Well-appearing, Well-nourished, lying in bed comfortably. Febrile and tachycardic, non-toxic appearing Skin: Warm, dry, no obvious rash Eyes: sclera anicteric, no conjunctival pallor ENT: mucous membranes moist, pharynx appears normal Neck: Supple, nontender Respiratory: Clear to auscultation, no signs of respiratory distress Cardiovascular: Normal S1, S2. No murmurs. Normal distal pulses in tibial and radial bilaterally. Tachycardic. Abdomen: Soft, nontender, normal active bowel sounds present Musculoskeletal: Normal, Strength/ROM Intact Neurological: A&Ox3, awake and alert, mentation is normal, speech is fluent and appropriate Psychiatric: affect is normal, does not appear anxious or depressed Triage Information Reviewed: Yes Vital Signs Reviewed: Yes Procedures - Sedation Patient Received Moderate/Deep Sedation with Procedure: No Diagnostics - Laboratory Result Diagrams: 01/15/19 04:50 01/15/19 04:50 Lab Statement: Any lab studies that have been ordered have been reviewed, and results considered in the medical decision making process. - Radiology Chest X-ray Radiology Interpretation Completed By: ED Physician Summary of Radiographic Findings: Chest X-ray IMPRESSION: new right lung opacity consistent with pneumonia. Reviewed and interpreted by ED physician; pending official radiology report. - EKG 01:54 Cardiac Rate: NL - 93 BPM EKG Rhythm: Sinus Rhythm ST Segment: Normal Ectopy: None Summary of EKG Findings: EKG at 01:54 shows 93 BPM with normal sinus rhythm, no STEMI, P waves, QRS complex, and T waves are within normal limits, T waves and intervals are normal, no ischemic changes. This is a normal EKG. Reviewed and interpreted by ED physician. Complex Multi-Symp Course/Dx Course Of Treatment: Patient is a 68 y/o M presenting to the ED for a chief complaint of fatigue. Patient was previously seen by Dr. Lawler for a follow up on a right knee surgery performed one year ago. While at Dr. Lawler's office, patient was reported to have a low grade fever of about 100 F. Patient reports falling out of bed with difficulty lifting himself up after the fall. Per EMS, patient had urinary incontinence. Patient also complains of decreased appetite, nausea, and lightheadedness. Patient denies chest pain, shortness of breath, cough, diarrhea, myalgia, headache, or problems with urinary voiding. Patient is currently receiving treatment for an enlarged prostate. Patient is retired. On exam, febrile and tachycardic, non-toxic appearing. In the ED course, patient was given azithromycin 500 mg IVPB, ceftriaxone 50 mls IVPB, and fluids. Laboratory abnormal findings: WBC 13.5, Hgb 13.1, Hct 38, absolute neuts 11.8, absolute lymphs 0.5, absolute monos 1.0, INR 1.28, BUN/Creatinine ratio 20.9, glucose 137, total bilirubin 1.40, urine protein 2+, urine ketones 1 +, urine blood 3+, urine RBC 3+, urine ascorbic acid present. EKG at 01:54 shows 93 BPM with normal sinus rhythm, no STEMI, P waves, QRS complex, and T waves are within normal limits, T waves and intervals are normal, no ischemic changes. This is a normal EKG. Chest X-ray IMPRESSION: new right lung opacity consistent with pneumonia. At 02:46, Dr. Jarrod Acosta agrees to admit the patient to [facility] with a diagnosis of sepsis and pneumonia. Patient will be admitted to [facility] with a diagnosis of sepsis and pneumonia. - Diagnoses Provider Diagnoses: Sepsis, Pneumonia - Physician Notifications Discussed Care Of Patient With: Jarrod Acosta - At 02:46, Dr. Jarrod Acosta agrees to admit the patient to [facility] with a diagnosis of sepsis and pneumonia. Time Discussed With Above Provider: 02:46 Instructed by Provider To: Admit As Inpatient Discharge ED - Sign-Out/Discharge Documenting (check all that apply): Patient Departure - Admit - Discharge Plan Condition: Stable Disposition: ADMITTED TO [facility] - Billing Disposition and Condition Condition: STABLE Disposition: Admitted to [facility] - Attestation Statements Document Initiated by Wendie: Yes Documenting Scribe: Guillermina Patten Provider For Whom Wendie is Documenting (Include Credential): Gino Dumas MD Scribe Attestation: Guillermina Charles scribed for Gino Dumas MD on 01/16/19 at 0304. Scribe Documentation Reviewed: Yes Provider Attestation: The documentation as recorded by the Guillermina shaikh accurately reflects the service I personally performed and the decisions made by Gino montes de oca MD Status of Scribe Document: Viewed
[2019-01-13 01:19] LABS: ABS Lymphocytes 0.5 10^3/ul (1.0-4.8); ABS Neutrophils 11.8 10^3/ul (1.5-7.7); Hematocrit 38 % (42-52); Hemoglobin 13.1 g/dL (14.0-18.0); Lymphocyte % 4.1 %; Mean Corpuscular HGB Conc 34 g/dL (31-36); Mean Corpuscular Hemoglobin 30 pg (27-31); Mean Corpuscular Volume 88 fL (80-94); Mean Platelet Volume 7.5 fL (7.4-10.4); Platelet Count 217 10^3/uL (150-450); Red Blood Count 4.37 10^6 /uL (4.18-5.48); Red Cell Distribution Width 14 % (10-15); White Blood Count 13.5 10^3/uL (3.5-10.8)
[2019-01-13 01:22] LABS: INR 1.28 (0.82-1.09)
[2019-01-13 01:56] LABS: Albumin 3.9 g/dL (3.2-5.2); Calcium 9.2 mg/dL (8.6-10.3); Potassium 3.9 mmol/L (3.5-5.0); Total Bilirubin 1.4 mg/dL (0.2-1.0)
[2019-01-13 02:02] LABS: Albumin/Globulin Ratio 1.2 (1-3); BUN/Creatinine Ratio 20.9 (8-20); EGFR Non-African American 63.6 (>60); Globulin 3.2 g/dL (2-4); Total Protein 7.1 g/dL (6.4-8.9)
[2019-01-13 02:03] LABS: Troponin I 0.01 ng/mL (<0.04)
[2019-01-13 02:30] LABS: Urine Appearance Cloudy; Urine Bacteria Absent (Absent); Urine Bilirubin Negative (Negative); Urine Blood 3+ (Negative); Urine Color Amber; Urine Glucose Negative (Negative); Urine Ketones 1+ (Negative); Urine Nitrite Negative (Negative); Urine Protein 2+(100 mg/dL) (Negative); Urine Red Blood Cell 3+(>10/hpf) (Absent); Urine Specific Gravity 1.027 (1.010-1.030); Urine Urobilinogen Negative (Negative); Urine White Blood Cell Absent (Absent)
[2019-01-13] MEDS ORDERED: Azithromycin 500 mg/250 ml NS 500 MG/250 ML BAG IVPB ONE (02:38)
[2019-01-13] MEDS ORDERED: cefTRIAXone(*) 1 GM in NS 0.9% 50 ML* 50 ML IVPB ONE (02:38)
[2019-01-13 03:28] LABS: Influenza A Molecular NEGATIVE (Negative); Influenza B Molecular NEGATIVE (Negative)
[2019-01-13 03:52] LABS: C Reactive Protein 166.87 mg/L (<8.01)
[2019-01-13] MEDS ORDERED: Ondansetron ODT TAB* 4 MG SL PRN (03:54)
[2019-01-13] MEDS ORDERED: NS 0.9% 1000 ML** 1,000 ML IV SCH (04:00)
[2019-01-13] MEDS ORDERED: Albuterol/Ipratropium NEB.SOL* Albuterol 2.5 MG/Ipratropium 0.5 MG 3 ML INH PRN (06:03)
[2019-01-13] MEDS: Tamsulosin CAP* 0.4 MG PO SCH (08:06)
[2019-01-13] MEDS: Atorvastatin* 20 MG TAB PO SCH (08:06)
[2019-01-13] MEDS: Aspirin EC TAB* 81 MG TAB.EC PO SCH (08:06)
[2019-01-13] MEDS: Enoxaparin(*) 40 MG/0.4 ML SYR SUBCUT SCH (08:06)
[2019-01-13] MEDS: Acetaminophen TAB* 325 MG PO PRN ×3 (08:25→23:44)
[2019-01-13] MEDS ORDERED: Magnesium Oxide TAB* 400 MG PO ONE (08:43)
--- NOTE | 2019-01-13 09:15 | HP ---
HISTORY AND PHYSICAL: DATE OF ADMISSION: 01/13/19 ADMITTING PROVIDER: Jarrod Acosta MD PRIMARY CARE PROVIDER: Dr. Banks CHIEF COMPLAINT: Fever, fall, general malaise. HISTORY OF PRESENT ILLNESS: Get Obregon is a 68-year-old male with past medical history of hypertension, hyperlipidemia, BPH, obesity, osteoarthritis. He had been feeling relatively well. He had a tickle in his throat two days prior to admission and some chills 2 nights prior to admission on Saturday, 01/11. Morning prior to admission, he went to an yearly followup with Dr. Lawler. He only ate half of his breakfast and then felt very fatigued, occasional lightheadedness and his head felt like he was "floating". He had some increased difficulty sitting up in bed for a few days. He was in bed for most of the rest of the afternoon. His then heard a thump and found him lying on the floor near the side of the bed without any underwear on, which she later found near the bathroom door. She thinks he had used the restroom, made it back to the bed, sat down on the side but slipped down out of the bed. He has no recollection of the events at all. She noted that he was a bit confused, thinking that he was actually in bed when he was actually on the floor still. He was able to move all extremities but he was not able to get up onto his feet and she had to call the EMS to help. At Dr. Lawler's office, he had had a fever about greater than 100 and his blood pressure was "good". At [facility] , he was found to have a fever of 102.6. He was tachycardic to 101. He had a leukocytosis of 13.5 and no lactic acidosis. His influenza swabs have been negative. He denies any chest pain, shortness of breath, coughing, wheezing, abdominal pain, diarrhea, constipation, night sweats, nausea, swelling in his legs. He had just returned a few days back from 2-day drive back up from [place] and went to hockey games on Saturday and Saturday where one of their friends, sitting behind them on Saturday, had recently gotten over pneumonia. The patient received 3 L normal saline bolus, ceftriaxone, and azithromycin in the emergency room. He was referred the Hospitalist service for admission for sepsis of unclear etiology. PAST MEDICAL HISTORY: Hypertension, osteoarthritis, hyperlipidemia, BPH, obesity. ALLERGIES: NOVOCAIN (tremors). FAMILY HISTORY: His mother of lymphoma at age 85, father of heart attack, age 64. He has 2 sisters, one with diabetes mellitus type 1 and heart attack, the other with thyroid disease, both are alive. They have 2 children, they are healthy. SOCIAL HISTORY: The patient is retired. He used to work in the [employer]. He is a never smoker. Only occasional alcohol use. No drug use. Medical surrogate is his , Yolanda. He desires to be a full code. REVIEW OF SYSTEMS: A complete 14-point review of systems is negative, except as per HPI. PHYSICAL EXAMINATION GENERAL APPEARANCE: No acute distress. VITAL SIGNS: Temperature 102.6, pulse rate 18, satting 90% to 97% on 2L, blood pressure 150/80 and currently is 117/68. HEENT: Normocephalic, atraumatic. Pupils equal, round, and reactive to light. Extraocular motions are intact. No scleral icterus. LUNGS: Clear to auscultation bilaterally with no wheezing, rales, or rhonchi. CARDIOVASCULAR: Regular rate and rhythm. No murmurs, rubs, or gallops. ABDOMEN: Soft, nontender, distended. No rebound or guarding. No Campos's sign. EXTREMITIES: Warm, well perfused. No peripheral edema. SKIN: No lesions or rashes. NEURO: Cranial nerves II through XII intact. Cdl [employer]icated [employer] strength intact. Sensation intact. DIAGNOSTIC STUDIES/LAB DATA: White count 13.5, hemoglobin 13.1, hematocrit 38 , platelets 217. INR 1.28. Sodium 137, potassium 3.9, chloride 105, carbon dioxide 24, BUN 24, creatinine 1.15, glucose 137, lactic acid 0.8, total bili 1.4, AST 18, ALT 12, alk phos 84, troponin 0.01, CRP 166.9, albumin 3.9. Urinalysis 2+ protein, 1+ ketones, 3+ blood, 3+ rbc's. Influenza A and B are negative. Imaging: Chest x-ray formal read is pending. It is hard to exclude some infiltrate near the right inferior hilum though cannot discount that this could be within normal limits. We will follow up formal read. EKG demonstrated normal sinus rhythm. No ST elevations, depressions, poor R- wave progression. Heart rate 93, QTc 408. ASSESSMENT AND PLAN: Get Obregon is a 68-year-old male with past medical history of hypertension, osteoarthritis, hyperlipidemia, obesity, benign prostatic hypertrophy presenting with systemic inflammatory response syndrome criteria of tachycardia, leukocytosis, fever, but as of yet no clear source. He has had perhaps slightly more urinary incontinence than usual, but his urinalysis is not concerning for infection. If anything I suspect possible viral gastroenteritis given his slight queazy sensation though without nausea and also reduced appetite. I suspect this is likely a viral process and we will await the formal chest x-ray interpretation, but notably he has no focal or respiratory symptoms at this time. Ceftriaxone 1gm q24 and azithromycin ( conver to oral 250mg po daily) will be continued empirically for now. Could consider repeat chest x-ray in a day or two if he starts to develop any symptoms. He will be admitted observation status, we will continue maintenance IV fluids. He can continue heart healthy diet. Order physical therapy. He has multiple steps in his house. There is possibility that he could have had some sort of cardiogenic or other syncopal event as he does not remember the events. I think less likely a seizure, though he did possibly fit with some confusion after the event. We will continue to monitor for now. He denied any chest pain, palpitations, and his troponin was negative at 0.01. No ischemic changes on EKG. In terms of his home medications, I am going to continue his Lipitor 20 mg for hyperlipidemia, aspirin 81 mg, Flomax0.4mg and oxybutynin 5 mg for BPH. We are going to hold his enalapril 10 mg given his systemic inflammatory response syndrome/sepsis and most recent blood pressure is 117/68. He is a full code. Medical surrogate is his , Yolanda. [id number]/[facility] #: [id number] [facility]
--- NOTE | 2019-01-13 11:13 | PN ---
Subjective Date of Service: 01/13/19 Interval History: Per nursing, patient was having great difficulty getting out of bed without assistance today, had a near fall and nursing assisted patient into chair with bed alarm. Patient denies symptomatic fever and chills, difficulty breathing, chest pain, abd pain. Nausea has resolved. Denies vomiting. Objective Active Medications: Acetaminophen (Tylenol Tab*) 650 mg PO Q6H PRN PRN Reason: PAIN - MILD Last Admin: 01/13/19 08:25 Dose: 650 mg Albuterol/Ipratropium (Duoneb (Albuterol 2.5 Mg/Ipratropium 0.5 Mg)) 1 neb INH Q4H PRN PRN Reason: SOB/WHEEZING Last Admin: 01/13/19 06:18 Dose: 1 neb Aspirin (Aspirin Ec Tab*) 81 mg PO QAWW [facility] Last Admin: 01/13/19 08:06 Dose: 81 mg Atorvastatin Calcium (Lipitor*) 20 mg PO QAWW [facility] Last Admin: 01/13/19 08:06 Dose: 20 mg Azithromycin (Zithromax Tab*) 250 mg PO DAILY [facility] Enoxaparin Sodium (Lovenox(*)) 40 mg SUBCUT DAILY [facility] Last Admin: 01/13/19 08:06 Dose: 40 mg Sodium Chloride (Ns 0.9% 1000 Ml) 1,000 mls @ 100 mls/hr IV PER RATE [facility] Stop: 01/13/19 13:59 Last Admin: 01/13/19 08:14 Dose: 100 mls/hr Ceftriaxone Sodium 1 gm/ (Sodium Chloride) 50 mls @ 100 mls/hr IVPB Q24H [facility] Ondansetron HCl (Zofran Odt Tab*) 4 mg SL Q6H PRN PRN Reason: NAUSEA/VOMITING Tamsulosin HCl (Flomax Cap*) 0.4 mg PO DAILY [facility] Last Admin: 01/13/19 08:06 Dose: 0.4 mg Vital Signs - 8 hr 01/13/19 01/13/19 01/13/19 03:33 04:00 04:03 Temperature Pulse Rate 89 Respiratory 24 22 25 Rate Blood Pressure 127/80 113/57 (mmHg) O2 Sat by Pulse 100 Oximetry 01/13/19 01/13/19 01/13/19 04:29 04:52 05:00 Temperature 100.8 F Pulse Rate 134 94 Respiratory 22 28 22 Rate Blood Pressure 155/72 152/72 (mmHg) O2 Sat by Pulse 99 99 Oximetry 01/13/19 01/13/19 01/13/19 05:03 05:49 06:20 Temperature 100 F Pulse Rate 97 84 Respiratory 27 19 16 Rate Blood Pressure 98/72 123/82 (mmHg) O2 Sat by Pulse 96 97 Oximetry 01/13/19 01/13/19 01/13/19 07:15 08:00 09:29 Temperature 102.5 F 97.9 F Pulse Rate 104 Respiratory 26 20 Rate Blood Pressure 139/71 (mmHg) O2 Sat by Pulse 96 96 Oximetry Oxygen Devices in Use Now: Nasal Cannula Appearance: Obese, white male, who appears younger than stated age, sitting in hospital chair, appearing comfortable and in NAD Eyes: No Scleral Icterus, - - PERRL Ears/Nose/Mouth/Throat: Mucous Membranes Moist Neck: Trachea Midline Respiratory: Symmetrical Chest Expansion and Respiratory Effort, - - faint crackles in left lung base; not using accessory muscles to breathe Cardiovascular: NL Sounds; No Murmurs; No JVD, RRR Abdominal: - - abd soft, nontender, nondistended Extremities: No Edema, No Clubbing, Cyanosis Skin: No Rash or Ulcers Neurological: Alert and Oriented x 3, NL Muscle Strength and Tone Result Diagrams: 01/13/19 01:01 01/13/19 01:01 Microbiology and Other Data: Microbiology 01/13/19 04:43 Legionella Urinary Antigen - Final Urine Negative Legionella Antigen Streptococcus pneumoniae Ag Screen - Final Negative S. pneumo Antigen Assess/Plan/Problems-Billing Assessment: 68 yo white male with PMHx HTN, HLD, BPH, OA presents with malaise and fever after a fall at home. - Patient Problems (1) Sepsis Current Visit: Yes Status: Acute Comment: -presented with leukocytosis, fever, tachycardia -2/2 pneumonia, mgmt as below -fever persistent today, improved with tylenol (2) Community acquired pneumonia Current Visit: Yes Status: Acute Code(s): J18.9 - PNEUMONIA, UNSPECIFIED ORGANISM SNOMED Code(s): 344776661 Comment: -CXR demonstrating possible bilateral lower lobe consolidation. Given fever and malaise, appears consistent with pneumonia -continue ceftriaxone and azithromycin -leukocytosis overnight at admission -fever today, prn tylenol continued (3) Hypoxia Current Visit: Yes Status: Acute Code(s): R09.02 - HYPOXEMIA SNOMED Code(s ): 897753848 Comment: -on 4L today but will atempt to wean -O2 sat 90% on RA at admission -likely 2/2 PNA (4) Fall Current Visit: Yes Status: Acute Comment: -suspect mechanical fall due to physical deconsitioning in the setting if acute illness -awaiting PT evaluation (5) HLD (hyperlipidemia) Current Visit: Yes Status: Acute Code(s): E78.5 - HYPERLIPIDEMIA, UNSPECIFIED SNOMED Code(s): 59071371 Comment: -continue lipitor (6) HTN (hypertension) Current Visit: No Status: Acute Code(s): I10 - ESSENTIAL (PRIMARY) HYPERTENSION SNOMED Code(s): 23232283 Comment: - holding home ELIZ-I in setting of sepsis - has been normotensive thus far today (7) DVT prophylaxis Current Visit: No Status: Acute Code(s): RUI0114 - SNOMED Code(s): 369522637 Comment: - Lovenox (8) Full code status Current Visit: No Status: Acute Code(s): Z78.9 - OTHER SPECIFIED HEALTH STATUS SNOMED Code(s): 545209387
[2019-01-14] MEDS: cefTRIAXone(*) 1 GM in NS 0.9% 50 ML* 50 ML IVPB SCH (05:47)
[2019-01-14 06:38] LABS: ABS Eosinophils 0.1 10^3/ul (0-0.6); ABS Lymphocytes 0.6 10^3/ul (1.0-4.8); ABS Monocytes 0.8 10^3/ul (0-0.8); ABS Neutrophils 6.9 10^3/ul (1.5-7.7); Eosinophil % 0.7 %; Hematocrit 38 % (42-52); Hemoglobin 12.9 g/dL (14.0-18.0); Mean Corpuscular HGB Conc 34 g/dL (31-36); Mean Corpuscular Hemoglobin 31 pg (27-31); Mean Corpuscular Volume 90 fL (80-94); Mean Platelet Volume 7.8 fL (7.4-10.4); Platelet Count 179 10^3/uL (150-450); Red Blood Count 4.23 10^6 /uL (4.18-5.48); Red Cell Distribution Width 14 % (10-15); White Blood Count 8.4 10^3/uL (3.5-10.8)
[2019-01-14 06:54] LABS: BUN/Creatinine Ratio 20.8 (8-20); EGFR African American 94.8 (>60); EGFR Non-African American 78.4 (>60); Magnesium 1.9 mg/dL (1.9-2.7)
[2019-01-14] MEDS: Azithromycin TAB* 250 MG PO SCH (10:16)
[2019-01-14] MEDS: Tamsulosin CAP* 0.4 MG PO SCH (10:16)
[2019-01-14] MEDS: Atorvastatin* 20 MG TAB PO SCH (10:17)
[2019-01-14] MEDS: Aspirin EC TAB* 81 MG TAB.EC PO SCH (10:17)
[2019-01-14] MEDS: Enoxaparin(*) 40 MG/0.4 ML SYR SUBCUT SCH (10:18)
--- NOTE | 2019-01-14 15:21 | PN ---
Subjective Date of Service: 01/14/19 Interval History: Patients breathing and overall feeling of wellness are improved. Patient has an intermittent dry cough. Patient denies CP, dizziness, N/V, abdominal pain, diarrhea, F/C. Patient was able to walk to the bathroom and back without getting too SOB, but felt fatigued and not near his baseline. Patient and his are concerned about his ability to get around this house in his current state. Family History: Unchanged from Admission Social History: Unchanged from Admission Past Medical History: Unchanged from Admission Objective Active Medications: Acetaminophen (Tylenol Tab*) 650 mg PO Q6H PRN PRN Reason: PAIN - MILD Last Admin: 01/13/19 23:44 Dose: 650 mg Albuterol/Ipratropium (Duoneb (Albuterol 2.5 Mg/Ipratropium 0.5 Mg)) 1 neb INH Q4H PRN PRN Reason: SOB/WHEEZING Last Admin: 01/13/19 06:18 Dose: 1 neb Aspirin ([facility]in Ec Tab*) [facility] Last Admin: 01/14/19 10:17 Dose: 81 mg Atorvastatin Calcium (Lipitor*) 20 mg PO QAM [facility] Last Admin: 01/14/19 10:17 Dose: 20 mg Azithromycin (Zithromax Tab*) 250 mg PO DAILY [facility] Last Admin: 01/14/19 10:16 Dose: 250 mg Enoxaparin Sodium (Lovenox(*)) 40 mg SUBCUT DAILY [facility] Last Admin: 01/14/19 10:18 Dose: 40 mg Ceftriaxone Sodium 1 gm/ (Sodium Chloride) 50 mls @ 100 mls/hr IVPB Q24H [facility] Last Admin: 01/14/19 05:47 Dose: 100 mls/hr Ondansetron HCl (Zofran Odt Tab*) 4 mg SL Q6H PRN PRN Reason: NAUSEA/VOMITING Tamsulosin HCl (Flomax Cap*) 0.4 mg PO DAILY [facility] Last Admin: 01/14/19 10:16 Dose: 0.4 mg Vital Signs - 8 hr 01/14/19 01/14/19 01/14/19 08:06 08:50 11:15 Temperature 98.6 F 97.8 F 98.3 F Pulse Rate 76 87 81 Respiratory 22 18 20 Rate Blood Pressure 116/62 139/64 124/75 (mmHg) O2 Sat by Pulse 96 96 97 Oximetry Oxygen Devices in Use Now: None Appearance: Patient is a 68yo male who appears stated age and is sitting in the bed in NAD. Eyes: No Scleral Icterus, PERRLA Ears/Nose/Mouth/Throat: NL Teeth, Lips, Gums, Clear Oropharnyx, Mucous Membranes Moist Neck: NL Appearance and Movements; NL JVP, Trachea Midline Respiratory: Symmetrical Chest Expansion and Respiratory Effort, Clear to Auscultation Cardiovascular: NL Sounds; No Murmurs; No JVD, RRR, No Edema Abdominal: NL Sounds; No Tenderness; No Distention, No Hepatosplenomegaly Lymphatic: No Cervical Adenopathy Extremities: No Edema, No Clubbing, Cyanosis Skin: No Rash or Ulcers, No Nodules or Sclerosis Neurological: Alert and Oriented x 3, NL Sensation, NL Muscle Strength and Tone , - - Occasionally somewhat slow to respond. Result Diagrams: 01/14/19 06:00 01/14/19 06:00 Microbiology and Other Data: Microbiology 01/13/19 04:43 Legionella Urinary Antigen - Final Urine Negative Legionella Antigen Streptococcus pneumoniae Ag Screen - Final Negative S. pneumo Antigen Assess/Plan/Problems-Billing Assessment: 68 yo white male with PMHx HTN, HLD, BPH, OA presents with malaise and fever after a fall at home, found to have PNA which is improving with antibiotics. - Patient Problems (1) Community acquired pneumonia Current Visit: Yes Status: Acute Code(s): J18.9 - PNEUMONIA, UNSPECIFIED ORGANISM SNOMED Code(s): 862799455 Comment: - CXR demonstrating possible bilateral lower lobe consolidation. Given fever, cough, hypoxia, and malaise, appears consistent with pneumonia - Continue ceftriaxone and azithromycin - Leukocytosis overnight at admission, now improved. -fever today, prn tylenol continued (2) Fall Current Visit: Yes Status: Acute Comment: - Suspect mechanical fall in the setting if acute illness - Improving strength with PT, expect continued improvement. (3) HLD (hyperlipidemia) Current Visit: Yes Status: Acute Code(s): E78.5 - HYPERLIPIDEMIA, UNSPECIFIED SNOMED Code(s): 45537153 Comment: - Continue lipitor (4) Hypoxia Current Visit: Yes Status: Acute Code(s): R09.02 - HYPOXEMIA SNOMED Code(s ): 546866852 Comment: - Acute hypoxic respiratory failure - Now resolved - Likely 2/2 PNA (5) Sepsis Current Visit: Yes Status: Acute Comment: - Presented with leukocytosis, fever, tachycardia - 2/2 pneumonia, Resolved. (6) DVT prophylaxis Current Visit: No Status: Acute Code(s): BWO3471 - SNOMED Code(s): 403230783 Comment: - Lovenox (7) Full code status Current Visit: No Status: Acute Code(s): Z78.9 - OTHER SPECIFIED HEALTH STATUS SNOMED Code(s): 234997050 Status and Disposition: Inpatient, hopeful D/C tomorrow.
[2019-01-14] MEDS: Acetaminophen TAB* 325 MG PO PRN ×2 (15:50→22:18)
[2019-01-15 05:25] LABS: ABS Eosinophils 0.2 10^3/ul (0-0.6); ABS Lymphocytes 0.6 10^3/ul (1.0-4.8); ABS Monocytes 0.8 10^3/ul (0-0.8); ABS Neutrophils 3.7 10^3/ul (1.5-7.7); Eosinophil % 3.7 %; Hematocrit 34 % (42-52); Hemoglobin 11.5 g/dL (14.0-18.0); Mean Corpuscular HGB Conc 34 g/dL (31-36); Mean Corpuscular Hemoglobin 30 pg (27-31); Mean Corpuscular Volume 88 fL (80-94); Mean Platelet Volume 7.5 fL (7.4-10.4); Platelet Count 196 10^3/uL (150-450); Red Blood Count 3.88 10^6 /uL (4.18-5.48); Red Cell Distribution Width 14 % (10-15); White Blood Count 5.4 10^3/uL (3.5-10.8)
[2019-01-15 05:37] LABS: BUN/Creatinine Ratio 19.8 (8-20); Calcium 8.7 mg/dL (8.6-10.3); EGFR African American 100.9 (>60); EGFR Non-African American 83.4 (>60); Potassium 3.7 mmol/L (3.5-5.0)
[2019-01-15] MEDS: cefTRIAXone(*) 1 GM in NS 0.9% 50 ML* 50 ML IVPB SCH (05:52)
[2019-01-15] MEDS: Atorvastatin* 20 MG TAB PO SCH (09:10)
[2019-01-15] MEDS: Tamsulosin CAP* 0.4 MG PO SCH (09:10)
[2019-01-15] MEDS: Azithromycin TAB* 250 MG PO SCH (09:10)
[2019-01-15] MEDS: Aspirin EC TAB* 81 MG TAB.EC PO SCH (09:10)
[2019-01-15] MEDS: Enoxaparin(*) 40 MG/0.4 ML SYR SUBCUT SCH (09:11)
[2019-01-15 10:18] VITALS: BP 127/73
--- NOTE | 2019-01-15 23:15 | DS ---
CC: Dr. Banks * DISCHARGE SUMMARY: DATE OF ADMISSION: 01/13/19 DATE OF DISCHARGE: 01/15/19 PRIMARY CARE PROVIDER: Dr. Banks. MY ATTENDING WHILE IN THE HOSPITAL: Dr. Osiris Polanco.* (DICTATED BY MANISH COLLAZO) PRIMARY DISCHARGE DIAGNOSES: 1. Acute community acquired pneumonia. 2. Sepsis, resolved. 3. Septic encephalopathy, resolved. SECONDARY DISCHARGE DIAGNOSES: 1. Hypertension. 2. Osteoarthritis. 3. Hyperlipidemia. 4. Benign prostatic hypertrophy. STUDIES DONE WHILE IN THE HOSPITAL: Chest x-ray from 01/13/19, read as low lung volumes, faint bilateral infiltrates suggestive of atelectasis or pneumonia. MEDICATIONS AT DISCHARGE: 1. Enalapril 10 mg p.o. daily. 2. Atorvastatin 20 mg p.o. daily. 3. Aspirin 81 mg p.o. daily. 4. Tamsulosin 0.4 mg p.o. daily. 5. Tylenol 650 mg p.o. q.6 hours as needed. 6. Zithromax 250 mg p.o. daily x3. 7. Cefuroxime 5 mg p.o. b.i.d. x10 doses. 8. Zofran ODT 4 mg IV q.4 hours as needed. New medications at discharge: 1. Tylenol. 2. Zithromax. 3. Cefuroxime. 4. Zofran. Medications discontinued at discharge: None. HOSPITAL COURSE: This is a brief summary of the patient's presentation. For more details, please see the history and physical from Dr. Jarrod Acosta on . In brief, the patient is a 68-year-old man with past medical history significant for the above who presented to the emergency department for 2 days of severe fatigue, altered mental status, falls, and shortness of breath. The patient after his last fall went to Dr. Lawler's office for routine followup and was referred to the emergency department due to fever. The patient in the emergency department was found to have an elevated temperature, was tachycardic with leukocytosis and infiltrates on his chest x-ray as above. The patient was started on ceftriaxone and azithromycin. The patient continued to have slight temperature elevation throughout the hospitalization. The patient had markedly altered mental status with even slight temperature elevations, but this improved to his baseline at the time of his discharge. The patient's shortness of breath improved as is his gait, strength and exercise tolerance. The patient on the day of discharge able to walk over 100 feet with this author without shortness of breath or other limitations. The patient on the day of discharge was entirely appropriate and had no other complaint. His also stated that he was back to his baseline. The patient was stable enough for discharge on 01/15/19. The patient was initially hypoxic needing 4 L of oxygen, but this was able to be weaned off on his hospital day 2 and his oxygen saturation has remained excellent on room air for the reminder of his hospitalization. PHYSICAL EXAMINATION ON THE DAY OF DISCHARGE: General: The patient is a 68- year- old male, who appears as stated age, sitting in the bed, in no acute distress. Vital Signs: At the time of evaluation, temperature 98.3, pulse 64, respiratory rate is 22, oxygen saturation 97% on room air, blood pressure 127/ 73. Neck: Supple, nontender. No lymphadenopathy. No carotid bruits auscultated. No JVD. Cardiac: Regular rate and rhythm. No clicks, murmurs, gallops or rubs. Pulses 2+ in the dorsalis pedis, posterior tibialis, and radial areas. Respiratory: Clear to auscultation bilaterally. No wheezes, rales or rhonchi. Good air exchange bilaterally. Abdomen: Soft, nontender, nondistended. Bowel sounds present in all 4 quadrants. No hepatosplenomegaly. Ne abdominal bruits auscultated. No hepatojugular reflux. Genitourinary: No suprapubic or CVA tenderness. Skin: Clean, dry, and intact. No rashes. Neuro: Cranial nerves II through XII intact. No focal deficits. Alert and not oriented x3. Normal gait. Psychiatric: Pleasant and cooperative. DISCHARGE PLAN BY PROBLEM: 1. Community acquired pneumonia with septic encephalopathy, resolved. The patient will be continued on for a total of 5 days of azithromycin, 7 days of third generation cephalosporin antibiotics. The patient should have aggressive fever management as this appears to be a strong provoking factor for his altered mental status. No other cause of his altered mental status was found and no other causes likely given the improvement and close of his fevers. The patient is to return to the hospital for high fevers unresponsive to Tylenol, severe shortness of breath, falls or other alarming symptoms. 2. Hypertension. The patient was on the high end of normal tension while in the hospital. The patient will have his enalapril resumed at discharge. This was held while he was in the hospital.. 3. Benign prostatic hypertrophy. Continue the patient's tamsulosin. DISPOSITION: Home. CONDITION: Stable. DIET: Heart-healthy diet. Caffeine okay. TIME SPENT: Approximately 60 minutes was spent on the discharge of this patient , 30 of which was spent [id number] with the patient, obtaining history and physical, and discussing the treatment plan. MANISH COLLAZO [id number]/[facility] #: [id number] MTDD
== END 2019-01-15 12:07 | disposition home or self-care (01) ==
LOC: ED 00:22 → MEDTELE 03:52
PROVIDERS: ADMIT Internal Medicine; ATTEND Hospitalist
DX: J18.9 Pneumonia, unspecified organism (principal); A41.9 Sepsis, unspecified organism; G93.41 Metabolic encephalopathy; I10 Essential (primary) hypertension; R09.02 Hypoxemia; R50.9 Fever, unspecified; M19.90 Unspecified osteoarthritis, unspecified site; R53.1 Weakness; E78.5 Hyperlipidemia, unspecified; N40.0 Benign prostatic hyperplasia without lower urinary tract symptoms; Z79.899 Other long term (current) drug therapy; Z79.82 Long term (current) use of aspirin; E66.9 Obesity, unspecified
CPT/HCPCS: 36415; 71046; 80048; 80053; 81003; 81015; 83036; 83605; 83735; 83880; 84484; 85025; 85610; 85730; 86140; 87040; 87205; 87899; 93005; 94640; 96365; 96366; 96372; 96375; 99285; A9270-GY; G0378; G8978-GP-CK; G8979-GP-CI; J0456; J0696; J1650

== ENCOUNTER 2023-03-04 11:47 | Observation (INO) ==
[2023-03-04 13:07] LABS: ABS Basophils 0.1 10^3/uL (0.0-0.1); ABS Lymphocytes 0.5 10^3/uL (1.0-4.8); ABS Monocytes 1.1 10^3/uL (0.0-1.1); ABS Neutrophils 13.2 10^3/uL (1.5-7.6); Eosinophil % 0.2 %; Hematocrit 37.3 % (38-53); Hemoglobin 12.7 g/dL (13.2-16.3); Lymphocyte % 3.2 %; Mean Corpuscular Hemoglobin 30.7 pg (27-33); Mean Corpuscular Hgb Conc 34.1 g/dL (31-36); Mean Platelet Volume 7.1 fL (7.5-11.2); Platelet Count 308 10^3/uL (150-450); Red Blood Count 4.15 10^6/uL (4.06-5.63); Red Cell Distribution Width 13.5 % (12-17); White Blood Count 14.8 10^3/uL (3.6-10.2)
[2023-03-04 13:11] LABS: Urine Appearance Clear; Urine Bilirubin Negative (Negative); Urine Blood 2+ (Negative); Urine Color Yellow; Urine Glucose Negative (Negative); Urine Ketones Negative (Negative); Urine Nitrite Negative (Negative); Urine Protein Negative (Negative); Urine Specific Gravity 1.015 (1.002-1.030); Urine Urobilinogen Negative (Negative)
[2023-03-04 13:15] LABS: Urine Bacteria Absent (Absent); Urine Red Blood Cell 3+(>10/hpf) (Absent); Urine Squamous Epithelial Cell Present (Absent); Urine White Blood Cell Absent (Absent)
[2023-03-04 13:19] LABS: Activated Partial Thrombo Time 29.7 seconds (26.0-38.0); INR 1.12 (0.83-1.13)
[2023-03-04 13:26] LABS: Albumin 4.1 g/dL (3.2-5.2); Albumin/Globulin Ratio 1.2 (1-3); C Reactive Protein 88.34 mg/L (<8.01); Creatinine, Serum 1.73 mg/dL (0.67-1.17); Globulin 3.3 g/dL (2-4); Potassium 3.8 mmol/L (3.5-5.0); Total Bilirubin 1.1 mg/dL (0.2-1.0); Total Protein 7.4 g/dL (6.4-8.9); eGFR CKD-EPI 41.9 (>60)
[2023-03-04 14:40] LABS: High Sensitivity Troponin 1 Hr 13 pg/mL (<20)
[2023-03-04] MEDS ORDERED: ceFAZolin 2 GM/50 ML BAG IV ONE (19:00)
[2023-03-04] MEDS: Enoxaparin 40 MG/0.4 ML SYR SUBCUT SCH ×2 (19:24→19:40)
[2023-03-04] MEDS ORDERED: Multivitamins/Mins AREDS2 (NF) CAP PO SCH (21:00)
[2023-03-05] MEDS: ceFAZolin 2 GM in NS PREMIX 2 GM/100 ML BAG IVPB SCH ×3 (03:59→20:46)
[2023-03-05 05:34] LABS: Hematocrit 35.5 % (38-53); Hemoglobin 12.2 g/dL (13.2-16.3); Mean Corpuscular Hemoglobin 30.9 pg (27-33); Mean Corpuscular Hgb Conc 34.3 g/dL (31-36); Platelet Count 259 10^3/uL (150-450); Red Blood Count 3.94 10^6/uL (4.06-5.63); Red Cell Distribution Width 13.3 % (12-17)
[2023-03-05 05:50] LABS: Calcium 9.3 mg/dL (8.6-10.3); Creatinine, Serum 1.29 mg/dL (0.67-1.17); Potassium 3.5 mmol/L (3.5-5.0); eGFR CKD-EPI 59.6 (>60)
[2023-03-05 06:06] LABS: TSH Ultra Thyroid Stim Horm 0.79 mcIU/mL (0.34-5.60)
[2023-03-05 06:17] LABS: Folate 7.66 ng/mL (5.90-24.80)
[2023-03-05] MEDS: Aspirin EC 81 mg TAB.EC (enteric coated) PO SCH (11:27)
[2023-03-05] MEDS ORDERED: NS 0.9% 1000 ml BAG 1,000 ML IV ONE (12:08)
[2023-03-05] MEDS ORDERED: Dextran 70/Hypromellose Tears Eye Drops 15 ml BTL (for Artificials Tears) BOTH EYES PRN (16:43)
[2023-03-05] MEDS ORDERED: Acetaminophen IV 1 GM/100ML 1,000 MG/100 ML BAG IV PRN (18:09)
[2023-03-05] MEDS: Enoxaparin 40 MG/0.4 ML SYR SUBCUT SCH (21:44)
[2023-03-06] MEDS: ceFAZolin 2 GM in NS PREMIX 2 GM/100 ML BAG IVPB SCH ×2 (04:14→13:35)
[2023-03-06 06:00] LABS: Hematocrit 32.7 % (38-53); Hemoglobin 11.4 g/dL (13.2-16.3); Mean Corpuscular Hemoglobin 31.2 pg (27-33); Mean Corpuscular Hgb Conc 34.8 g/dL (31-36); Mean Corpuscular Volume 89.9 fL (80-97); Mean Platelet Volume 7.3 fL (7.5-11.2); Platelet Count 261 10^3/uL (150-450); Red Blood Count 3.64 10^6/uL (4.06-5.63); Red Cell Distribution Width 13.4 % (12-17); White Blood Count 8.3 10^3/uL (3.6-10.2)
[2023-03-06 07:07] LABS: Calcium 8.8 mg/dL (8.6-10.3); Creatinine, Serum 1.08 mg/dL (0.67-1.17); Potassium 3.8 mmol/L (3.5-5.0); eGFR CKD-EPI 73.8 (>60)
[2023-03-06 08:55] LABS: Magnesium 1.8 mg/dL (1.9-2.7)
[2023-03-06 08:56] LABS: Ferritin 419.5 ng/mL (24-336)
[2023-03-06] MEDS: Aspirin EC 81 mg TAB.EC (enteric coated) PO SCH (10:43)
[2023-03-06] MEDS ORDERED: Cyanocobalamin INJ 1,000 MCG/ML VIAL 1 ML VIAL IM ONE (13:37)
[2023-03-06] MEDS: Enoxaparin 40 MG/0.4 ML SYR SUBCUT SCH (20:27)
[2023-03-07 06:16] LABS: Calcium 8.8 mg/dL (8.6-10.3); Creatinine, Serum 0.84 mg/dL (0.67-1.17); Potassium 3.5 mmol/L (3.5-5.0); eGFR CKD-EPI 93.8 (>60)
[2023-03-07] MEDS: Aspirin EC 81 mg TAB.EC (enteric coated) PO SCH (08:23)
[2023-03-07] MEDS ORDERED: Potassium EFFERVES 25 meq TAB PO ONE (08:30)
[2023-03-07 10:55] VITALS: BP 112/76
[2023-03-07 13:13] LABS: Rapid COVID-19 Molecular Undetected (Undetected)
== END 2023-03-07 14:05 ==
LOC: EDHOLD 11:47 → ED 11:47 → SSU 20:08
PROVIDERS: ADMIT Internal Medicine; ATTEND Internal Medicine

== ENCOUNTER 2023-03-17 16:16 | Inpatient (IN) ==
[2023-03-17 17:44] LABS: ABS Basophils 0.1 10^3/uL (0.0-0.1); ABS Eosinophils 0.2 10^3/uL (0.0-0.5); ABS Lymphocytes 0.7 10^3/uL (1.0-4.8); ABS Monocytes 1.1 10^3/uL (0.0-1.1); ABS Neutrophils 13.1 10^3/uL (1.5-7.6); Hematocrit 35.6 % (38-53); Lymphocyte % 4.4 %; Mean Corpuscular Hemoglobin 30.1 pg (27-33); Mean Corpuscular Hgb Conc 33.8 g/dL (31-36); Mean Platelet Volume 7.3 fL (7.5-11.2); Platelet Count 374 10^3/uL (150-450); Red Cell Distribution Width 13.1 % (12-17); White Blood Count 15.1 10^3/uL (3.6-10.2)
[2023-03-17 18:02] LABS: Albumin 3.9 g/dL (3.2-5.2); Albumin/Globulin Ratio 1.2 (1-3); C Reactive Protein 49.95 mg/L (<8.01); Calcium 9.3 mg/dL (8.6-10.3); Creatinine, Serum 1.26 mg/dL (0.67-1.17); Globulin 3.3 g/dL (2-4); Potassium 3.8 mmol/L (3.5-5.0); Total Bilirubin 0.7 mg/dL (0.2-1.0); Total Protein 7.2 g/dL (6.4-8.9); eGFR CKD-EPI 61.4 (>60)
[2023-03-17] MEDS ORDERED: Iohexol 350 (CONTRAST) 500 ML MDV IV ONE (18:18)
[2023-03-17] MEDS ORDERED: Lactated Ringers 1000 ml BAG 1,000 ML IV ONE (18:22)
[2023-03-17 18:40] LABS: Urine Appearance Cloudy; Urine Bacteria 1+ (Absent); Urine Bilirubin Negative (Negative); Urine Blood 3+ (Negative); Urine Color Red; Urine Glucose Negative (Negative); Urine Ketones Negative (Negative); Urine Nitrite Positive (Negative); Urine Protein 2+(100 mg/dL) (Negative); Urine Red Blood Cell 3+(>10/hpf) (Absent); Urine Urobilinogen Negative (Negative); Urine White Blood Cell 3+(>20/hpf) (Absent)
[2023-03-17] MEDS ORDERED: Acetaminophen IV 1 GM/100ML 1,000 MG/100 ML BAG IV ONE (18:47)
[2023-03-17] MEDS ORDERED: cefTRIAXone 2 gm/50 mL D5W 2 GM/50 ML BAG IV ONE (20:12)
[2023-03-17] MEDS ORDERED: Ondansetron 4 mg VIAL 2 MG/ML 2 ml VIAL IV PRN (21:46)
[2023-03-17] MEDS ORDERED: cefTRIAXone 1 gm/50 mL D5W 1 GM/50 ML BAG IV SCH (22:00)
[2023-03-17 22:16] LABS: Magnesium 1.7 mg/dL (1.9-2.7)
[2023-03-17] MEDS ORDERED: Magnesium Sulfate 2 gm BAG 2 GM/50 ML BAG IVPB ONE (22:29)
[2023-03-17] MEDS ORDERED: Lactated Ringers 1000 ml BAG 1,000 ML IV SCH (23:45)
[2023-03-18 05:35] LABS: Calcium 8.4 mg/dL (8.6-10.3); Creatinine, Serum 0.95 mg/dL (0.67-1.17); Potassium 3.7 mmol/L (3.5-5.0); eGFR CKD-EPI 86.1 (>60)
[2023-03-18 05:57] LABS: ABS Basophils 0.1 10^3/uL (0.0-0.1); ABS Eosinophils 0.3 10^3/uL (0.0-0.5); ABS Lymphocytes 0.6 10^3/uL (1.0-4.8); ABS Monocytes 0.7 10^3/uL (0.0-1.1); ABS Neutrophils 10.4 10^3/uL (1.5-7.6); Eosinophil % 2.2 %; Hematocrit 31.3 % (38-53); Hemoglobin 10.8 g/dL (13.2-16.3); Lymphocyte % 4.7 %; Mean Corpuscular Hemoglobin 30.7 pg (27-33); Mean Corpuscular Hgb Conc 34.5 g/dL (31-36); Mean Corpuscular Volume 89.1 fL (80-97); Mean Platelet Volume 7.4 fL (7.5-11.2); Platelet Count 272 10^3/uL (150-450); Red Blood Count 3.52 10^6/uL (4.06-5.63); Red Cell Distribution Width 13.2 % (12-17); White Blood Count 11.9 10^3/uL (3.6-10.2)
[2023-03-18] MEDS: Cholecalciferol (VIT D3) 1,000 unit TAB PO SCH (08:07)
[2023-03-18] MEDS ORDERED: NF: Multivitamins/Mins AREDS2 (NF) CAP PO SCH (09:00)
[2023-03-18] MEDS ORDERED: Vancomycin 1,500 MG in NS 0.9% 250 ml 250 ML IVPB ONE (17:30)
[2023-03-18] MEDS ORDERED: Vancomycin per Pharmacy 1 EA NOTE FOLLOW UP PRN (18:25)
[2023-03-18] MEDS: NF: Multivitamins/Mins AREDS2 (NF) CAP PO SCH (20:11)
[2023-03-18] MEDS ORDERED: cefTRIAXone 1 gm/50 mL D5W 1 GM/50 ML BAG IV SCH ×2 (21:00)
[2023-03-19] MEDS ORDERED: Acetaminophen IV 1 GM/100ML 1,000 MG/100 ML BAG IV PRN (04:53)
[2023-03-19] MEDS ORDERED: Haloperidol 5 mg/ml SDV IV/IM 5 MG/ML AMP IV SLOW PU ONE (05:00)
[2023-03-19] MEDS: Vancomycin 1,250 MG in NS 0.9% 250 ml 250 ML IVPB SCH ×2 (06:48→17:38)
[2023-03-19 08:00] LABS: Hematocrit 30.4 % (38-53); Hemoglobin 10.5 g/dL (13.2-16.3); Mean Corpuscular Hemoglobin 30.7 pg (27-33); Mean Corpuscular Hgb Conc 34.6 g/dL (31-36); Mean Corpuscular Volume 88.5 fL (80-97); Mean Platelet Volume 7.3 fL (7.5-11.2); Platelet Count 286 10^3/uL (150-450); Red Blood Count 3.43 10^6/uL (4.06-5.63); White Blood Count 7.3 10^3/uL (3.6-10.2)
[2023-03-19 08:17] LABS: Calcium 8.4 mg/dL (8.6-10.3); Creatinine, Serum 0.94 mg/dL (0.67-1.17); Magnesium 1.9 mg/dL (1.9-2.7); Potassium 3.8 mmol/L (3.5-5.0); eGFR CKD-EPI 87.2 (>60)
[2023-03-19] MEDS: Cholecalciferol (VIT D3) 1,000 unit TAB PO SCH (12:57)
[2023-03-19] MEDS: NF: Multivitamins/Mins AREDS2 (NF) CAP PO SCH ×2 (12:57→21:37)
[2023-03-20] MEDS ORDERED: Vancomycin Trough Check NOTE FOLLOW UP ONE (05:30)
[2023-03-20 05:51] LABS: ABS Basophils 0.1 10^3/uL (0.0-0.1); ABS Eosinophils 0.5 10^3/uL (0.0-0.5); ABS Monocytes 0.7 10^3/uL (0.0-1.1); ABS Neutrophils 4.8 10^3/uL (1.5-7.6); Eosinophil % 7.3 %; Hemoglobin 11.2 g/dL (13.2-16.3); Lymphocyte % 13.9 %; Mean Corpuscular Volume 88.2 fL (80-97); Mean Platelet Volume 7.1 fL (7.5-11.2); Platelet Count 320 10^3/uL (150-450); Red Blood Count 3.74 10^6/uL (4.06-5.63); Red Cell Distribution Width 13.2 % (12-17)
[2023-03-20 06:08] LABS: Calcium 8.8 mg/dL (8.6-10.3); Creatinine, Serum 0.78 mg/dL (0.67-1.17); Creatinine, Serum 0.82 mg/dL (0.67-1.17); Potassium 4.1 mmol/L (3.5-5.0); eGFR CKD-EPI 94.5 (>60); eGFR CKD-EPI 95.9 (>60)
[2023-03-20 07:02] LABS: Magnesium 1.9 mg/dL (1.9-2.7)
[2023-03-20] MEDS: Cholecalciferol (VIT D3) 1,000 unit TAB PO SCH (08:11)
[2023-03-20] MEDS: Vancomycin 1,250 MG in NS 0.9% 250 ml 250 ML IVPB SCH ×2 (08:11→18:34)
[2023-03-20] MEDS: NF: Multivitamins/Mins AREDS2 (NF) CAP PO SCH ×2 (08:12→22:23)
[2023-03-20] MEDS: [UNRECOGNIZED DRUG - OTHER] PO SCH (22:24)
[2023-03-21 05:35] LABS: Hematocrit 32.2 % (38-53); Hemoglobin 11.1 g/dL (13.2-16.3); Mean Corpuscular Hemoglobin 30.7 pg (27-33); Mean Corpuscular Hgb Conc 34.5 g/dL (31-36); Mean Corpuscular Volume 89.1 fL (80-97); Platelet Count 310 10^3/uL (150-450); Red Blood Count 3.61 10^6/uL (4.06-5.63); Red Cell Distribution Width 13.1 % (12-17); White Blood Count 7.1 10^3/uL (3.6-10.2)
[2023-03-21] MEDS: Vancomycin 1,250 MG in NS 0.9% 250 ml 250 ML IVPB SCH ×2 (06:22→22:00)
[2023-03-21] MEDS ORDERED: CBD PO SCH (09:49)
[2023-03-21] MEDS: Cholecalciferol (VIT D3) 1,000 unit TAB PO SCH (10:16)
[2023-03-21] MEDS: NF: Multivitamins/Mins AREDS2 (NF) CAP PO SCH (10:16)
[2023-03-21] MEDS ORDERED: Midazolam 5 mg/5 ml VIAL 1 mg/ml 5 ml VIAL (5 mg) ONE ×3 (13:57→14:50)
[2023-03-21] MEDS: [UNRECOGNIZED DRUG - OTHER] PO SCH (22:01)
[2023-03-22] MEDS ORDERED: Vancomycin Trough Check NOTE FOLLOW UP ONE (06:00)
[2023-03-22 06:14] LABS: Hematocrit 31.4 % (38-53); Mean Corpuscular Volume 88.5 fL (80-97); Mean Platelet Volume 6.8 fL (7.5-11.2); Platelet Count 344 10^3/uL (150-450); Red Blood Count 3.55 10^6/uL (4.06-5.63); Red Cell Distribution Width 13.2 % (12-17); White Blood Count 7.5 10^3/uL (3.6-10.2)
[2023-03-22 06:33] LABS: Calcium 9.1 mg/dL (8.6-10.3); Creatinine, Serum 0.93 mg/dL (0.67-1.17); Potassium 4.2 mmol/L (3.5-5.0); eGFR CKD-EPI 88.3 (>60)
[2023-03-22 06:57] LABS: Vancomycin Trough 19.5 mcg/mL
[2023-03-22] MEDS: Vancomycin 1,250 MG in NS 0.9% 250 ml 250 ML IVPB SCH (07:46)
[2023-03-22] MEDS ORDERED: Vancomycin 1,000 MG in NS 0.9% 250 ml 250 ML IVPB SCH (08:16)
[2023-03-22] MEDS: Cholecalciferol (VIT D3) 1,000 unit TAB PO SCH (10:24)
[2023-03-22] MEDS: Multivitamins/Minerals TAB PO SCH (10:24)
[2023-03-22] MEDS: Vancomycin 1,000 MG in NS 0.9% 250 ml 250 ML IVPB SCH (19:59)
[2023-03-22] MEDS: [UNRECOGNIZED DRUG - OTHER] PO SCH (21:55)
[2023-03-23] MEDS: Vancomycin 1,000 MG in NS 0.9% 250 ml 250 ML IVPB SCH ×2 (08:43→19:39)
[2023-03-23] MEDS: Multivitamins/Minerals TAB PO SCH (08:51)
[2023-03-23] MEDS: Cholecalciferol (VIT D3) 1,000 unit TAB PO SCH (08:52)
[2023-03-23] MEDS: [UNRECOGNIZED DRUG - OTHER] PO SCH (21:22)
[2023-03-24] MEDS ORDERED: Vancomycin Trough Check NOTE FOLLOW UP ONE (07:30)
[2023-03-24] MEDS: Vancomycin 1,000 MG in NS 0.9% 250 ml 250 ML IVPB SCH ×4 (08:25→20:34)
[2023-03-24] MEDS: Cholecalciferol (VIT D3) 1,000 unit TAB PO SCH (08:26)
[2023-03-24] MEDS: Multivitamins/Minerals TAB PO SCH (08:26)
[2023-03-24] MEDS ORDERED: Lidocaine 4% GEL 10 GM TUBE TOPICAL ONE (11:06)
[2023-03-24] MEDS ORDERED: Lidocaine 4% GEL 10 GM TUBE TOPICAL PRN (12:11)
[2023-03-24] MEDS ORDERED: NS 0.9% 1000 ml BAG 1,000 ML IV ONE (14:45)
[2023-03-24] MEDS: [UNRECOGNIZED DRUG - OTHER] PO SCH (20:25)
[2023-03-25 06:23] LABS: Hematocrit 31.7 % (38-53); Mean Corpuscular Hemoglobin 30.8 pg (27-33); Mean Corpuscular Hgb Conc 34.6 g/dL (31-36); Platelet Count 344 10^3/uL (150-450); Red Blood Count 3.56 10^6/uL (4.06-5.63); Red Cell Distribution Width 13.1 % (12-17)
[2023-03-25 06:42] LABS: Calcium 8.7 mg/dL (8.6-10.3); Creatinine, Serum 0.91 mg/dL (0.67-1.17); Potassium 4.1 mmol/L (3.5-5.0); eGFR CKD-EPI 90.7 (>60)
[2023-03-25] MEDS: Vancomycin 1,000 MG in NS 0.9% 250 ml 250 ML IVPB SCH ×2 (08:04→20:31)
[2023-03-25] MEDS: Cholecalciferol (VIT D3) 1,000 unit TAB PO SCH (08:29)
[2023-03-25] MEDS: Multivitamins/Minerals TAB PO SCH (08:30)
[2023-03-25] MEDS: [UNRECOGNIZED DRUG - OTHER] PO SCH (20:54)
[2023-03-26] MEDS: Vancomycin 1,000 MG in NS 0.9% 250 ml 250 ML IVPB SCH ×2 (10:13→20:00)
[2023-03-26] MEDS: Cholecalciferol (VIT D3) 1,000 unit TAB PO SCH (10:14)
[2023-03-26] MEDS: Multivitamins/Minerals TAB PO SCH (10:14)
[2023-03-26] MEDS: [UNRECOGNIZED DRUG - OTHER] PO SCH (21:48)
[2023-03-27 06:36] LABS: Creatinine, Serum 0.97 mg/dL (0.67-1.17)
[2023-03-27 06:37] LABS: Vancomycin Trough 20.2 mcg/mL
[2023-03-27] MEDS ORDERED: Vancomycin Trough Check NOTE FOLLOW UP ONE (07:30)
[2023-03-27] MEDS: Vancomycin 1,000 MG in NS 0.9% 250 ml 250 ML IVPB SCH (08:32)
[2023-03-27] MEDS: Cholecalciferol (VIT D3) 1,000 unit TAB PO SCH (09:44)
[2023-03-27] MEDS: Multivitamins/Minerals TAB PO SCH (09:44)
[2023-03-27 09:47] VITALS: BP 101/63
[2023-03-27] MEDS ORDERED: LORazepam 2 mg VIAL 1 ml IV PUSH ONE (10:59)
[2023-03-27] MEDS ORDERED: Lorazepam PYXIS KEY PRN (10:59)
[2023-03-27] MEDS ORDERED: Vancomycin 750 MG in NS 0.9% 250 ML IVPB SCH (18:00)
[2023-03-28] MEDS ORDERED: Vancomycin Random Level NOTE FOLLOW UP ONE ×2 (05:30→06:00)
== END 2023-03-27 14:50 | disposition home or self-care (01) | DRG 871 ==
LOC: EDHOLD 16:16 → ED 16:16 → SUATTDRO 21:46 → MED 03-18 12:54 → SUATTDRO 03-19 11:00 → SSU 03-19 14:07
PROVIDERS: ADMIT Internal Medicine; ATTEND Internal Medicine

== ENCOUNTER 2023-05-20 08:26 | Inpatient (IN) ==
[2023-05-20] MEDS ORDERED: Midazolam 2 mg/2 ml VIAL 1 mg/ml 2 ml VIAL (2 mg) ONE (09:07)
[2023-05-20] MEDS ORDERED: cefTRIAXone 2 gm/50 mL D5W 2 GM/50 ML BAG IV ONE (09:09)
[2023-05-20] MEDS ORDERED: Phenylephrine IV 10 MG/ML 1 ml VIAL ONE (09:11)
[2023-05-20 09:15] LABS: Rapid COVID-19 Molecular Undetected (Undetected)
[2023-05-20] MEDS ORDERED: Bupivacaine-MPF SPINAL 7.5 MG/ML - 2ML AMP ONE (10:41)
[2023-05-20] MEDS ORDERED: Furosemide 20 mg/2 ml IV VIAL ONE (10:41)
[2023-05-20] MEDS ORDERED: fentaNYL 100 mcg/2 ml 50 MCG/ML VIAL IV PRN (12:35)
[2023-05-20] MEDS ORDERED: Ondansetron 4 mg VIAL 2 MG/ML 2 ml VIAL ONE (12:39)
[2023-05-20] MEDS: Ondansetron 4 mg VIAL 2 MG/ML 2 ml VIAL IV PRN (12:40)
[2023-05-20] MEDS ORDERED: Metoclopramide 5 MG/ML VIAL (10 mg) ONE (12:55)
[2023-05-20] MEDS: Metoclopramide 5 MG/ML VIAL (10 mg) IV PRN (12:57)
[2023-05-20] MEDS ORDERED: Scopolamine 1 mg/72hr PATCH ONE (13:47)
[2023-05-20] MEDS: Scopolamine 1 mg/72hr PATCH TRANSDERM ONE (13:48)
[2023-05-20] MEDS: Buffered Lidocaine 1% SYRIN 1 ml INTRADERM ONE (15:24)
[2023-05-20] MEDS: Lactated Ringers 1000 ml BAG 1,000 ML IV SCH ×2 (15:24→15:31)
[2023-05-20] MEDS: Acetaminophen IV 1 GM/100ML 1,000 MG/100 ML BAG IV PRN (18:28)
[2023-05-21 06:51] LABS: Calcium 9.2 mg/dL (8.6-10.3); Creatinine, Serum 0.85 mg/dL (0.67-1.17); Potassium 4.1 mmol/L (3.5-5.0); eGFR CKD-EPI 93.5 (>60)
[2023-05-21] MEDS: Cholecalciferol (VIT D3) 1,000 unit TAB PO SCH (08:18)
[2023-05-21] MEDS: cefTRIAXone 2 gm/50 mL D5W 2 GM/50 ML BAG IV ONE (10:06)
[2023-05-22] MEDS: Furosemide 20 mg/2 ml IV VIAL IV SLOW PU ONE (07:59)
[2023-05-22 10:05] LABS: ABS Eosinophils 0.1 10^3/uL (0.0-0.5); ABS Lymphocytes 0.9 10^3/uL (1.0-4.8); ABS Monocytes 0.6 10^3/uL (0.0-1.1); ABS Neutrophils 8.7 10^3/uL (1.5-7.6); Eosinophil % 1.2 %; Hematocrit 36.1 % (38-53); Hemoglobin 12.2 g/dL (13.2-16.3); Lymphocyte % 8.5 %; Mean Corpuscular Hemoglobin 29.9 pg (27-33); Mean Corpuscular Hgb Conc 33.8 g/dL (31-36); Mean Corpuscular Volume 88.3 fL (80-97); Mean Platelet Volume 7.1 fL (7.5-11.2); Platelet Count 292 10^3/uL (150-450); Red Blood Count 4.09 10^6/uL (4.06-5.63); White Blood Count 10.4 10^3/uL (3.6-10.2)
[2023-05-22 19:18] LABS: Urine Appearance Clear; Urine Bilirubin Negative (Negative); Urine Blood 3+ (Negative); Urine Color Light-Yellow; Urine Glucose Negative (Negative); Urine Ketones Negative (Negative); Urine Nitrite Negative (Negative); Urine Protein 1+ (>=30 mg/dL) (Negative); Urine Specific Gravity 1.008 (1.002-1.030); Urine Urobilinogen Negative (Negative); Urine pH 6.5 (5.0-8.0)
[2023-05-22 19:41] LABS: Urine Bacteria Absent /HPF (Absent); Urine Red Blood Cell 3+(>10/hpf) /HPF (0-Trace); Urine White Blood Cell 1+(6-10/hpf) /HPF (0-Trace)
[2023-05-22] MEDS: Enoxaparin 40 MG/0.4 ML SYR SUBCUT SCH (20:18)
[2023-05-22] MEDS ORDERED: Polyethylene Glycol 3350 17 GM PACKET PO PRN (21:52)
[2023-05-23 09:33] LABS: ABS Basophils 0.1 10^3/uL (0.0-0.1); ABS Eosinophils 0.2 10^3/uL (0.0-0.5); ABS Lymphocytes 0.8 10^3/uL (1.0-4.8); ABS Monocytes 0.6 10^3/uL (0.0-1.1); Eosinophil % 2.9 %; Hematocrit 36.6 % (38-53); Hemoglobin 12.3 g/dL (13.2-16.3); Lymphocyte % 9.3 %; Mean Corpuscular Hemoglobin 29.9 pg (27-33); Mean Corpuscular Hgb Conc 33.7 g/dL (31-36); Mean Corpuscular Volume 88.7 fL (80-97); Mean Platelet Volume 7.1 fL (7.5-11.2); Platelet Count 282 10^3/uL (150-450); Red Blood Count 4.13 10^6/uL (4.06-5.63); White Blood Count 8.7 10^3/uL (3.6-10.2)
[2023-05-23 10:07] LABS: Calcium 9.5 mg/dL (8.6-10.3); Creatinine, Serum 0.84 mg/dL (0.67-1.17); Potassium 4.5 mmol/L (3.5-5.0); eGFR CKD-EPI 93.8 (>60)
[2023-05-23 15:22] LABS: HDL Cholesterol 47.2 mg/dL
[2023-05-23 15:33] LABS: TSH Ultra Thyroid Stim Horm 1.45 mcIU/mL (0.34-5.60)
[2023-05-23] MEDS ORDERED: Sulfur Hexaflouride MICROSPHR 25 MG VIAL ONE (17:07)
[2023-05-23] MEDS: Aspirin EC 81 mg TAB.EC (enteric coated) PO SCH (17:57)
[2023-05-23] MEDS: Senna TAB 8.6 mg TAB PO PRN (23:29)
[2023-05-24 10:56] VITALS: BP 125/74
== END 2023-05-24 13:40 | disposition home or self-care (01) | DRG 713 ==
LOC: SSU 08:26 → OR 08:26 → SSU 18:44
PROVIDERS: ADMIT Urology; ATTEND Internal Medicine